=== PATIENT | female | born 1970 | race Caucasian/White ===

== ENCOUNTER → 2020-08-18 00:24 | Outpatient (CLI) | payer BC, SELFPAY ==
[2020-08-18 19:26] LABS: SARS-CoV-2 RNA PCR Negative
== END ==
PROVIDERS: PCP Internal Medicine; Visit Provider Internal Medicine Gastroenterology
DX: Z01.812 Encounter for preprocedural laboratory examination (principal); Z20.822 Contact with and (suspected) exposure to COVID-19
CPT/HCPCS: C9803; U0003; U0005

== ENCOUNTER 2020-08-22 01:31 | Day surgery (SDC) | payer BC, SELFPAY ==
[2020-08-08 13:33] VITALS: BMI 19.5
[2020-08-22 07:23] VITALS: BP 130/81; PULSE 82; RESP 16; TEMP 36.7; O2SAT 100; BMI 23.4
[2020-08-22] MEDS: LACTATED RINGERS 1,000 ML 150 ML IV CONT (07:38)
--- NOTE | 2020-08-22 08:11 | WPDANESEPPF ---
Anes - Initial Pre Proc Eval Procedure: Operation Date: 08/22/20 08:30 Proposed Procedures p Screening Colonoscopy - Valente Farnsworth MD Date/Time: 08/22/20 08:11 Surgeon: Valente Farnsworth MD Pre Op Diagnosis: family hx of colon Ca, Neoplasm screening Patient Data Age: 50 Gender: F Height: 1.68 m Weight: 65.8 kg Last Vital Signs Temp 98.1 F 08/22/20 07:23 Pulse 82 08/22/20 07:23 Resp 16 08/22/20 07:23 BP 130/81 08/22/20 07:23 Pulse Ox 100 08/22/20 07:23 Allergies Allergy/AdvReac Type Severity Reaction Status Date / Time No Known Allergies Allergy Verified 08/22/20 07:22 Home Medications Medication Instructions Recorded Confirmed Type buspirone 10 mg tablet 10 mg PO BID 12/30/18 08/22/20 History lisdexamfetamine 50 mg capsule 50 mg PO DAILY 12/30/18 08/22/20 History lorazepam 0.5 mg tablet 0.5 mg PO TID PRN 12/30/18 08/22/20 History vilazodone 40 mg tablet 40 mg PO DAILY 12/30/18 08/22/20 History amlodipine 5 mg tablet 5 mg PO DAILY #90 tablet 02/01/20 08/22/20 Rx levothyroxine 100 mcg tablet 100 mcg PO DAILY #90 tablet 02/01/20 08/22/20 Rx valacyclovir 500 mg tablet See Rx Instructions .ROUTE 05/15/20 08/22/20 Rx .COMPLEX #90 tablet clonidine HCl 0.1 mg PO DAILY 08/08/20 08/22/20 History Patient hx anesthesia problems: none Family hx anesthesia problems: none PMFSH Past Medical History Medical History (Updated 05/15/20 @ 15:00 by Brian aGines APRN) ADD (attention deficit disorder) Adult hypothyroidism Anxiety and depression Family history of breast cancer in mother Surgical History Surgical History (Updated 05/15/20 @ 15:08 by Brian Gaines APRN) History of tonsillectomy History of tubal ligation Family History Family History Father Hypertension Family history of diabetes mellitus in first degree relative Mother Hypertension Family history of malignant neoplasm of breast in first degree relative Other Carcinoma of colon Social History Social History Smoking status: Never smoker Alcohol intake: current Drinks per week: 6 Substance use: never Substance use type: does not use Living arrangements: alone Spiritual care concerns: No Anes - Eval Final PreProcedure Day of Procedure 08/22/20 08:11 Patient weight: normal Heart: regular rate and rhythm Lungs: clear to auscultation Airway: Mallampati scale class II Neurological: alert and oriented Last oral intake: >/= 8 hours ASA classification: II Emergent: no Anesthetic plan: proceed Anesthesia type and monitoring: general GIVS and standard monitoring Informed Consent: The patient's anesthetic plan and its attendant risks and benefits were discussed with the patient/family/POA. Questions were solicited and answers provided to the satisfaction of the patient/family/POA.
--- NOTE | 2020-08-22 08:26 | PM.HPGS ---
History of Present Illness History of Present Illness Consent: Risks, benefits, and alternatives have been discussed and questions answered. Patient agrees to proceed with procedure. Chief complaint: family hx of colon Ca, Neoplasm screening Narrative: Nany Noriega is a 50 year old female referred for colon cancer screening Review of Systems Review of Systems: All systems reviewed & are unremarkable except as noted in HPI and below PMFSH Past Medical History Medical History ADD (attention deficit disorder) Adult hypothyroidism Anxiety and depression Family history of breast cancer in mother Surgical History Surgical History History of tonsillectomy History of tubal ligation Family History Family History Father Hypertension Family history of diabetes mellitus in first degree relative Mother Hypertension Family history of malignant neoplasm of breast in first degree relative Other Carcinoma of colon Social History Social History Smoking status: Never smoker Alcohol intake: current Drinks per week: 6 Substance use: never Substance use type: does not use Living arrangements: alone Spiritual care concerns: No Meds Home Medications and Allergies Home Medications Medication Instructions Recorded Confirmed Type buspirone 10 mg tablet 10 mg PO BID 12/30/18 08/22/20 History lisdexamfetamine 50 mg capsule 50 mg PO DAILY 12/30/18 08/22/20 History lorazepam 0.5 mg tablet 0.5 mg PO TID PRN 12/30/18 08/22/20 History vilazodone 40 mg tablet 40 mg PO DAILY 12/30/18 08/22/20 History amlodipine 5 mg tablet 5 mg PO DAILY #90 tablet 02/01/20 08/22/20 Rx levothyroxine 100 mcg tablet 100 mcg PO DAILY #90 tablet 02/01/20 08/22/20 Rx valacyclovir 500 mg tablet See Rx Instructions .ROUTE 05/15/20 08/22/20 Rx .COMPLEX #90 tablet clonidine HCl 0.1 mg PO DAILY 08/08/20 08/22/20 History Allergies Allergy/AdvReac Type Severity Reaction Status Date / Time No Known Allergies Allergy Verified 08/22/20 07:22 Vital Signs Vital Signs - 24 hr 08/22/ 07:23 Temperature 36.7 C Pulse Rate 82 Respiratory Rate 16 Blood Pressure 130/81 Pulse Oximetry 100 Exam Resp: Auscultation: clear to auscultation bilaterally Cardio: Rate: regular rate Rhythm: regular rhythm GI: GI Palp: Yes Soft to palpation and No Tenderness to palpation present (GI) Assessment and Plan Assessment and plan (1) Colon cancer screening: Code(s): Z12.11 - Encounter for screening for malignant neoplasm of colon Status: Acute Assessment and Plan: Colonoscopy with possible biopsy or polypectomy or cautery or injection of substances.
[2020-08-22 08:57] VITALS: BP 107/55; PULSE 78; RESP 22; O2SAT 100
[2020-08-22 09:07] VITALS: BP 119/64; PULSE 70; RESP 18; O2SAT 100
[2020-08-22 09:17] VITALS: BP 134/78; PULSE 60; RESP 20; O2SAT 100
== END 2020-08-22 09:29 | disposition home or self-care (01) ==
PROVIDERS: PCP Internal Medicine; Visit Provider Internal Medicine Gastroenterology
PROC: 0DJD8ZZ Inspection of Lower Intestinal Tract, Via Natural or Artificial Opening Endoscopic (ICD-10-PCS; CPT 45378; principal; 2020-08-22 08:30)
DX: Z12.11 Encounter for screening for malignant neoplasm of colon (principal); Z80.0 Family history of malignant neoplasm of digestive organs; E03.9 Hypothyroidism, unspecified; F41.8 Other specified anxiety disorders; F98.8 Other specified behavioral and emotional disorders with onset usually occurring in childhood and adolescence; Z85.3 Personal history of malignant neoplasm of breast
CPT/HCPCS: 45378; J2704; J7120

== ENCOUNTER → 2021-01-16 02:27 | Outpatient (CLI) | payer BC, SELFPAY ==
[2021-01-16 10:57] LABS: Influenza Control Positive
[2021-01-16 18:48] LABS: SARS-CoV-2 RNA PCR Negative
== END ==
PROVIDERS: PCP Internal Medicine; Visit Provider Internal Medicine
DX: R68.89 Other general symptoms and signs (principal); Z20.822 Contact with and (suspected) exposure to COVID-19
CPT/HCPCS: 87804; C9803; U0003; U0005

== ENCOUNTER 2021-09-29 11:51 | Emergency (ER) | payer BC, SELFPAY ==
--- NOTE | ~2021-09-29 | XR_ITS ---
EXAMINATION: XR chest 2V DATE: 09/29/2021 14:02 INDICATION: Productive cough, nausea and vomiting. COVID positive. TECHNIQUE: PA and lateral views of the chest were obtained. COMPARISON: None FINDINGS: Mild streaky atelectasis at the left lung base with tenting of the anterior left hemidiaphragm. No ot her airspace opacities, pulmonary edema, pleural effusion or pneumothorax. The cardiomediastinal silh ouette is normal. No thoracic spondylosis. IMPRESSION: 1. Mild left basilar atelectasis. No other acute cardiopulmonary disease. Reviewed, dictated and finalized at location A.
[2021-09-29 11:54] VITALS: BP 140/80; PULSE 94; RESP 14; TEMP 36.2; O2SAT 100
--- NOTE | 2021-09-29 15:05 | ED.URI ---
HPI - URI/Sore Throat General Chief Complaint: Upper Respiratory Infection Stated Complaint: covid positive, productive cough Time Seen by Provider: 09/29/21 15:04 Source: patient Mode of arrival: ambulatory Limitations: no limitations History of Present Illness HPI Narrative: Patient is a 51 y/o female who presents to the ED with multiple complaints. Patient reports she was diagnosed with COVID-19 on 09/18. She states she has felt persistently ill since then. She complains of diffuse myalgias, cough, congestion, headache, sore throat, anorexia, diarrhea. Today, she reported having nausea and vomiting after attempting to eat cereal. She called her family and was referred to the ED for further evaluation. Patient denies any blood in stool or emesis. Denies fever, difficulty breathing, chest pain, abdominal pain. She is not vaccinated for COVID. Has been taking Theraflu for symptoms. No pain medication today. Related Data Home Medications Medication Instructions Recorded Confirmed buspirone 10 mg tablet 10 mg PO BID 12/30/18 11/22/20 lisdexamfetamine 50 mg capsule 50 mg PO DAILY 12/30/18 11/22/20 (Vyvanse) lorazepam 0.5 mg tablet 0.5 mg PO TID PRN Anxiety 12/30/18 11/22/20 vilazodone 40 mg tablet (Viibryd) 40 mg PO DAILY 12/30/18 11/22/20 clonidine HCl 0.1 mg tablet 0.1 mg PO DAILY 08/08/20 11/22/20 Allergies Allergy/AdvReac Type Severity Reaction Status Date / Time No Known Allergies Allergy Verified 11/22/20 11:45 Review of Systems Review of Systems: CONSTITUTIONAL: Reports anorexia. Denies fever, chills, or sweats. ENT: Reports congestion. Denies sore throat. CARDIOVASCULAR: Denies chest pain. RESPIRATORY: Reports cough. Denies dyspnea. GASTROINTESTINAL: Reports N/V/D. Denies abdominal pain, rectal bleeding, hematemesis. MUSCULOSKELETAL: Reports myalgia. NEUROLOGIC: Reports headache. Denies focal weakness. All systems reviewed & are unremarkable except as noted in HPI and below PMFSH Past Medical History Medical History ADD (attention deficit disorder) Adult hypothyroidism Anxiety and depression Family history of breast cancer in mother Surgical History Surgical History History of tonsillectomy History of tubal ligation Family History Family History Father Hypertension Family history of diabetes mellitus in first degree relative Mother Hypertension Family history of malignant neoplasm of breast in first degree relative Other Carcinoma of colon Social History Social History Smoking status: Never smoker Second hand tobacco smoke exposure: Yes Alcohol intake: current Drinks per week: 8 Alcohol use details: mixed drinks Substance use: never Substance use type: does not use Spiritual care concerns: No Exam Narrative: GENERAL: Well appearing, well-nourished, non-toxic, in no acute distress. HEAD: Normocephalic, atraumatic. THROAT: Pharynx clear, no exudate. MMs moist. NECK: Supple. No adenopathy, no masses. RESPIRATORY: Airway patent, respirations nonlabored. Clear to auscultation bilaterally, no rales, rhonchi, wheezing. No respiratory distress. CARDIOVASCULAR: Regular rate and rhythm without murmurs, rubs, or gallops. Peripheral pulses 2+ and equal bilaterally. ABDOMINAL: Soft, nontender, nondistended, no hepatosplenomegaly. Normoactive BS. MUSCULOSKELETAL: Moves all extremities. Strength/ROM intact without gross deformities. No edema. SKIN: Warm, dry, normal color. No rashes. NEURO: A&O X3. Speech clear. Cranial nerves II-XII grossly intact. Steady gait. No ataxic movements. PSYCHIATRIC: Appropriate mood and affect. Normal interaction. Course Vital Signs Vital signs: Vital Signs Temperature 97.2 F L 09/29/21 11:54 Pulse Rate 94 09/29/21 11:54
[2021-09-29 16:10] LABS: Basophils Percent Auto 0.5 % (0.2-1.2); Eosinophils Percent Auto 0.2 % (0-4.4); Hemoglobin 13.4 g/dL (12.0-15.0); Immature Granulocyte Absolute 0.01 K/mm3 (0.00-0.031); Immature Granulocyte Percent A 0.2 % (0-0.5); Lymphocytes Percent Auto 34.5 % (18.3-44.2); Mean Corpuscular HGB Conc 34.4 g/dl (32-36); Mean Corpuscular Hemoglobin 31.8 pg (26-34); Mean Corpuscular Volume 92.4 fl (80-100); Mean Platelet Volume 9.2 fl (7.4-10.4); Monocytes Absolute Auto 0.4 K/mm3 (0.1-0.6); Monocytes Percent Auto 6.5 % (2.6-8.5); Neutrophils Absolute Auto 3.9 K/mm3 (1.3-6.7); Neutrophils Percent Auto 58.1 % (45.5-73.1); Platelet Count Result 199 k/mm3 (150-375); Red Blood Count 4.22 M/mm3 (4.2-5.4); Red Cell Distribution Width 11.9 % (11.5-14.5); White Blood Count 6.7 K/mm3 (4.5-10.0)
[2021-09-29 16:24] LABS: Alanine Aminotransferase 30 U/L (6-35); Albumin Level 4.5 g/dL (3.5-5.1); Alkaline Phosphatase 56 U/L (38-126); Anion Gap 8 mmol/L (8-16); Aspartate Amino Transferase 32 U/L (14-36); Bilirubin,Total 0.5 mg/dL (0.2-1.3); Blood Urea Nitrogen 17 mg/dL (7-17); Calcium 8.8 mg/dL (8.4-10.2); Carbon Dioxide 28 mmol/L (22-30); Chloride 102 mmol/L (98-107); Estimated CRCL calculation 68 ml/min; Estimated Glomerular Filt Rate > 60; Glucose 118 mg/dL (65-110); Potassium 4.1 mmol/L (3.4-5.0); Sodium 138 mmol/L (137-145)
[2021-09-29] MEDS: KETOROLAC 30 MG/ML VIAL (*BKC) IV PUSH (16:31)
[2021-09-29] MEDS: ONDANSETRON INJ 4 MG/2 ML VIAL IV PUSH (16:32)
[2021-09-29] MEDS: SODIUM CHLORIDE 0.9% IV 1,000 ML 999 ML IV CONT (16:34)
== END 2021-09-29 18:06 | disposition home or self-care (01) ==
PROVIDERS: Physician Assistant; Emergency Provider Emergency Medicine; PCP Internal Medicine
DX: U07.1 COVID-19 (principal); E03.9 Hypothyroidism, unspecified; F98.8 Other specified behavioral and emotional disorders with onset usually occurring in childhood and adolescence; F41.9 Anxiety disorder, unspecified; F32.A Depression, unspecified; Z28.310 Unvaccinated for COVID-19
CPT/HCPCS: 36415; 71046; 80053; 85025; 96365; 96375; 99284; J0131; J1885; J2405; J7030

== ENCOUNTER 2024-01-12 10:12 | Outpatient (CLI) | payer BC, SELFPAY ==
[2024-01-12 19:19] LABS: Alanine Aminotransferase 27 U/L (6-35); Albumin Level 4.9 g/dL (3.5-5.1); Alkaline Phosphatase 64 U/L (38-126); Anion Gap 7 mmol/L (4-12); Aspartate Amino Transferase 42 U/L (14-36); Bilirubin,Total 0.8 mg/dL (0.2-1.3); Blood Urea Nitrogen 14 mg/dL (7-17); Calcium 9.7 mg/dL (8.4-10.2); Carbon Dioxide 31 mmol/L (22-30); Chloride 99 mmol/L (98-107); Cholesterol 318 mg/dL (0-200); Estimated Glomerular Filt Rate 58; Glucose 98 mg/dL (65-110); HDL Direct 88 mg/dL; Sodium 137 mmol/L (137-145); Triglycerides 123 mg/dL (<150)
[2024-01-12 19:31] LABS: LDL Cholesterol Direct 173 mg/dL
[2024-01-12 19:42] LABS: Hematocrit 45.1 % (37.0-47.0); Hemoglobin 14.5 g/dL (12.0-15.0); Mean Corpuscular HGB Conc 32.2 g/dl (32-36); Mean Corpuscular Hemoglobin 31.9 pg (26-34); Mean Corpuscular Volume 99.1 fl (80-100); Mean Platelet Volume 10.2 fl (7.4-10.4); Platelet Count Result 285 k/mm3 (150-375); Red Blood Count 4.55 M/mm3 (4.2-5.4); Red Cell Distribution Width 12.9 % (11.5-14.5); White Blood Count 7.7 K/mm3 (4.5-10.0)
[2024-01-12 20:23] LABS: Free T4 Free Thyroxine 0.64 ng/mL (0.78-2.19)
== END 2024-01-12 10:13 | disposition home or self-care (01) ==
LOC: ANHBWCLAB 10:13
PROVIDERS: PCP Nurse Practitioner Adult Health; Visit Provider Nurse Practitioner Adult Health
DX: Z13.21 Encounter for screening for nutritional disorder (principal); Z13.29 Encounter for screening for other suspected endocrine disorder; Z13.220 Encounter for screening for lipoid disorders; Z13.228 Encounter for screening for other metabolic disorders; Z13.9 Encounter for screening, unspecified
CPT/HCPCS: 36415; 80053; 80061; 82607; 84439; 84443; 85027

== ENCOUNTER 2024-02-29 15:42 | Outpatient (CLI) | payer BC, SELFPAY ==
[2024-02-29 21:36] LABS: Cholesterol 198 mg/dL (0-200); HDL Direct 103 mg/dL; Triglycerides 83 mg/dL (<150)
[2024-02-29 21:45] LABS: LDL Cholesterol Direct 58 mg/dL
== END 2024-02-29 15:43 | disposition home or self-care (01) ==
LOC: ANHBWCLAB 15:43
PROVIDERS: PCP Nurse Practitioner Adult Health; Visit Provider Nurse Practitioner Adult Health
DX: E78.5 Hyperlipidemia, unspecified (principal); E03.9 Hypothyroidism, unspecified
CPT/HCPCS: 36415; 80061; 84443

== ENCOUNTER 2024-04-11 11:36 | Outpatient (CLI) | payer BC, SELFPAY ==
--- OUTSIDE RECORDS SUMMARY | 2024-04-11 12:20 | XMS_ITS | Encounter Summary ---
Author Organization [facility] Address [address] [place] [address] Care Team Providers Care Occupancy Specialist Name Role Phone Jhony Vogt DO Primary Care Provider [phone] Encounter Details Date Type Department Care Team ([facility] Contact Info) Description 05/11/2000 Outpatient Historical [facility] Internal Medicine [facility] [address] [address] Obed Rodriguez MD [facility] [place] [address] Social History Tobacco Use Types Packs/Day Years Used Date Smoking Tobacco: Never Assessed Comments Unknown Sex and Gender Information Value Date Recorded Sex Assigned at Not on file Legal Sex Female 2:49 AM SECOND RIGGER Gender Identity Not on file Sexual Orientation Not on file documented as of this encounter Plan of Treatment Upcoming Encounters Date Type Department Care Team ([facility] Contact Info) Description 04/14/2024 1:00 PM SECOND RIGGER Office Visit [facility] [employer] [facility] [address] [address] [place] [address] Nayan José MD [address] [place] [address] documented as of this encounter Visit Diagnoses Not on filedocumented in this encounter Care Teams Occupancy Specialist Relationship Specialty Start Date End Date Jhony Vogt DO [address] [facility] [address] [facility] [address] [place] [id number] PCP - General Internal Medicine 02/21/20 documented as of this encounter
--- OUTSIDE RECORDS SUMMARY | 2024-04-11 12:20 | XMS_ITS | Clinical Summary ---
Author Organization [facility] Address [address] [place] [address] Care Team Providers Care Imaging Science Professor Name Role Phone Jhony Vogt DO Primary Care Provider [phone] Allergies No known active allergies Medications busPIRone (BUSPAR) 15 mg Tablet TK 1 T PO BID 0 Active cloNIDine HCL (CATAPRES) 0.1 mg tablet TK 1 T PO BID 0 Active Vyvanse 70 mg capsule Take 50 mg by mouth daily in the morning. 0 Active ARIPiprazole (ABILIFY) 5 mg tablet Take 5 mg by mouth daily. 2 Active LORazepam (ATIVAN) 1 mg tablet Take 1 mg by mouth 2 times daily. 2 Active Auvelity 45-105 mg tablet, IR & ER, biphasic Take 1 Tablet by mouth 2 times daily. 3 Active viloxazine (Qelbree) 200 mg Capsule, Sust. Release 24HR Take by mouth. Active QUEtiapine (SEROquel) 100 mg tablet Take 100 mg by mouth 2 times daily. Active levothyroxine 25 mcg tablet Oral for 90 Days Active cyclobenzaprine (FLEXERIL) 5 mg Tablet Take 1 tablet 3 times a day by oral route for 5 days. 4 Active escitalopram oxalate (LEXAPRO) 20 mg tablet Take 1 Tablet by mouth daily. Active fluticasone propionate (FLONASE) 50 mcg/spray [place], Suspension nasal inhaler SHAKE LIQUID AND USE 2 SPRAYS IN EACH NOSTRIL EVERY DAY Active lumateperone (Caplyta) 10.5 mg Capsule 1 Capsule. 4 Active rosuvastatin (CRESTOR) 5 mg tablet TAKE 1 TABLET BY MOUTH EVERY DAY AT BEDTIME Oral for 90 Days Active valACYclovir (VALTREX) 500 mg tablet TAKE 1 TABLET(500 MG) BY MOUTH DAILY 90 Tablet 1 4 Active amLODIPine (Norvasc) 5 mg tablet Take 1 Tablet (5 mg) by mouth daily. 90 Tablet 2 5 Active amLODIPine (Norvasc) 5 mg tablet Take 1 Tablet (5 mg) by mouth daily. 90 Tablet 2 4 03/28/19 25 Discontinu ed(Reorder ) Active Problems Problem Noted Date Diagnosed Date Essential hypertension, benign 10/28/2005 Other and unspecified hyperlipidemia 08/07/2005 Elevated blood pressure read ing without diagnosis of hypertension 08/07/2005 Depressive disorder, not elsewhere classified Allergic rhinitis, cause unspecified 04/04/2004 Attention deficit disorder without mention of hy peractivity 04/04/2004 Encounters Date Type Department Care Team Description 04/05/2024 Telephone [facility] Clinical Support [address] [place] [address] Maxwell Sheppard, RN Results 04/05/2024 Orders Only [facility] LIQUEFIED NATURAL GAS PLANT OPERATOR [facility] [address] [address] [place] [address] Nayan José MD 04/01/2024 Abstract [facility] LIQUEFIED NATURAL GAS PLANT OPERATOR [facility] [address] [address] [place] [address] Nayan José MD 03/31/2024 11:00 AM BACTERIOLOGY RESEARCH ASSISTANT Procedure visit [facility] LIQUEFIED NATURAL GAS PLANT OPERATOR [facility] [address] [facility] [address] [place] [address] Nayan José MD LGSIL on Pap smear of cervix (Primary Dx) 03/31/2024 Telephone [facility] LIQUEFIED NATURAL GAS PLANT OPERATOR [facility] [address] [address] [place] [address] Nayan José MD Surgery 03/28/2024 Refill [facility] LIQUEFIED NATURAL GAS PLANT OPERATOR [facility] [place] [address] [facility] [address] [place] [address] Nyaan José MD 03/23/2024 External Device Data [facility] ABSTRACTION Provider, Abstract 03/15/2024 External Device Data [facility] ABSTRACTION Provider, Abstract 02/23/2024 Refill [facility] LIQUEFIED NATURAL GAS PLANT OPERATOR [facility] [address] [facility] [address] [place] [address] Nayan José MD 02/12/2024 [facility] Clinical Support [address] [place] [address] Nayan José MD 02/12/2024 Telephone [facility] Clinical Support [address] [place] [address] Osvaldo Davis, RN Results 02/02/2024 11:20 AM BACTERIOLOGY RESEARCH ASSISTANT Office Visit [facility] LIQUEFIED NATURAL GAS PLANT OPERATOR [facility] [address] [facility] [address] [place] [address] Nayan José MD Encounter for well woman exam with routine gynecological exam (Primary Dx); Screening for malignant neoplasm of cervix; Breast cancer screening by mammogram 01/26/2024 Telephone [facility] Clinical Support [address] [place] [address] Jenifer Jean, RN Results from Last 3 Months Immunizations Immunization Administration Dates Next Due (TDVAX)(7 YRS UP) TETANUS AN D DIPHTHERIA TOXOIDS, ADSORBED (2 LF OF TETANUS TOXOID AND 2 LF OF DIPHTHERIA TOXOID), 0.5ML (PF), IM 09/20/2001 Skin Test TB 09/22/2001 Family History Medical History Relation Name Comments Cancer - Other Maternal Grandmother Evette Velasco Colon Cancer Colon Cancer Maternal Grandmother Evette Velasco Breast Cancer Mother Mariana Campos Colon Cancer Other great grandmoth er Relation Name Status Comments Maternal Grandmother Evette Velasco Alive Mother Mariana Campos Alive Other Social History Tobacco Use Types Packs/Day Years Used Date Smoking Tobacco: Never Smokeless Tobacco: Never Tobacco Cessation:Counseling Given: Not Answered Alcohol Use Standard Drinks/Week Comments Yes 0 (1 standard drink = 0.6 oz pur e alcohol) Feeling Safe Answer Date Recorded Are you in a relationship wi th someone who hurts you emotionally and/or physically? No 12/09/2023 Comments No Sex and Gender Information Value Date Recorded Sex Assigned at Not on file Legal Sex Female 2:49 AM BACTERIOLOGY RESEARCH ASSISTANT Gender Identity Not on file Sexual Orientation Not on file Last Filed Vital Signs Vital Sign Reading Time Taken Comments Blood Pressure 136/72 02/02/2024 11:22 AM BACTERIOLOGY RESEARCH ASSISTANT Pulse 82 12/09/2023 10:40 AM CDT Temperature 36.3 C (97.3 F) 12/09/2023 10:22 AM CDT Respiratory Rate 18 12/09/2023 10:40 AM CDT Oxygen Saturation 100% 12/09/2023 10:40 AM CDT Inhaled Oxygen Concentration - - Weight 64.2 kg (141 lb 9.6 oz) 03/31/2024 11:03 AM BACTERIOLOGY RESEARCH ASSISTANT Height 167.6 cm (5' 6 ) 02/02/2024 11:22 AM BACTERIOLOGY RESEARCH ASSISTANT Body Mass Index 22.85 02/02/2024 11:22 AM BACTERIOLOGY RESEARCH ASSISTANT Plan of Treatment Upcoming Encounters Date Type Department Care Team (Late st Contact Info) Description 04/14/2024 1:00 PM BACTERIOLOGY RESEARCH ASSISTANT Office Visit [facility] LIQUEFIED NATURAL GAS PLANT OPERATOR Medical [place] [address] [address] [address] [place] [address] Nayan José MD [facility] [address] [place] [address] Health Maintenance Due Date Last Done Comments HEPATITIS B VACCINES (1 of 3 - 19+ 3-dose series) 1989 DTAP/TDAP/TD VACCINES (1 - Tdap) 09/21/2001 09/21/19 02 FIT-DNA Q 3 years 08/19/2015 FIT/FOBT Q 1 year 08/19/2015 Flex Sig/CT Colonography Q 5 years 08/19/2015 ZOSTER VACCINE (1 of 2) 2020 INFLUENZA VACCINE (#1) 2023 11/15/2019, 2015 Preventative Visit- Commercial 03/02/2024 1 04/04/2023, 01/19/2023, 01/15/2022, Additional history exists BREAST CANCER SCREENING 01/13/2025 01/14/20, 01/27/2023, 12/16/2022, Additional history exists COLORECTAL SCREENING 12/08/2026 12/09/2023, 12/09/19 Colorectal Cancer Screening 12/08/2026 CERVICAL CANCER SCREENING 02/01/20272023, 01/19/2023, 01/15/2022, Additional history exists Medical Devices Implanted Type Area Automotive Refinisher Device Identifier Shelf Expiration Date Model / Serial / Lot Clip Endo Resolution 360 235cm [id number] - [id number] Implanted:Qty: 1 on 12/09/2023 by Melissa Barajas MD at [facility] Clip N/A: Perianal [employer] [id number] 07/16/2026 [id number] / / [id number] Description:colon Procedures Procedure Name Priority Date/Time Associated Diagnosis Comments PATHOLOGY Routine 04/01/2024 9:27 AM BACTERIOLOGY RESEARCH ASSISTANT POC , URINE Routine 03/31/2024 11:19 AM BACTERIOLOGY RESEARCH ASSISTANT LGSIL on Pap smear of cervix CERV/VAG CYTO AGE BASED SCREEN PAP Routine 02/02/2024 11:48 AM BACTERIOLOGY RESEARCH ASSISTANT Screening for malignant neoplasm of cervix COLONOSCOPY REPORT 12/09/2023 10 :33 AM CDT MAMMO DIAG UNI LEFT 3D MARY ELLEN W OR WO CAD Routine 01/27/2023 11:04 AM BACTERIOLOGY RESEARCH ASSISTANT Abnormal mammogram of left breast Breast cancer screening by mammogram from Last 3 Months or Most Recently Relevant to Health Maintenance Results * PATHOLOGY (04/01/2024 9:27 AM BACTERIOLOGY RESEARCH ASSISTANT) Tissue us Nayan José MD PATHOLOGY/CYTOLOGY ORDERABLE S Edited Result - Final Performing Organization Address [facility]/ZIP Co de Phone Number [facility] ANUPAMA STAFFORDER [address] CLIA# [id number] [address] [address] * POC , URINE (03/31/2024 11:19 AM BACTERIOLOGY RESEARCH ASSISTANT) HCG QUAL URINE POC Negative Negative, Indeterminate [facility] OBGYN TOWER A [address] INTERNAL KIT QC POC Pass Pass [facility] TOWER A [address] KIT LOT NUMBER POC [phone] [facility] TOWER A [address] KIT EXP DATE POC 4.8 [facility] TOWER A [address] Urine 03/31/2024 11:1 9 AM BACTERIOLOGY RESEARCH ASSISTANT Nayan José MD POINT OF CARE TESTING Final Result Performing Organization Address [facility] Co de Phone Number [facility] ANUPAMA STAFFORDER A [address] CLIA# [id number] [address] [address] * (ABNORMAL) CERV/VAG CYTO AGE BASED SCREEN PAP (02/02/2024 11:48 AM BACTERIOLOGY RESEARCH ASSISTANT) COMMENT (PAP): [facility] Comment: This order for age-based cervical cancer and STI screening follows ACOG guidelines(PB 168, 140, FOI760). See individual assays for performing site location. CLINICAL INFORMATION [facility] Comment:Routine exam LAST MENSTRUAL PERIOD [facility] Comment:NONE GIVEN PREV PAP: [facility] Comment:NONE GIVEN PREV BX: [facility] Comment:NONE GIVEN SOURCE [facility] Comment:Endocervix ADEQUACY: [facility] Comment: Satisfactory for evaluation. Endocervical/transformation zone component present. GENERAL CATEGORIZATION: (A) [facility] Comment:Cytology Results: Ep ithelial Cell Abnormality PAP INTERP (A) [facility] Comment:Low Grade Squamous I ntraepithelial Lesion (LSIL) COMMENT (PAP TEST) [facility] [employer] [facility] Comment: This Pap test has been evaluated with computer assisted technology. Suggest clinical correlation and follow-up as clinically appropriate ELEVATOR INSPECTOR: Henny Tejeda Comment: MVB, CT(ASCP) CT Screening Location: [place] [address] [place] [address] PATHOLOGIST [employer] Te[facility]eda Comment: Rashi Lai M.D., Board Certified in Anatomic Pathology and Cytopathology. (electronic signature) EXPLANATORY NOTE [facility] [place] Comment: EXPLANATORY NOTE: The Pap is a screening test for cervical cancer. It is not a diagnostic test and is subject to false negative and false positive results. It is most reliable when a satisfactory sample, regularly obtained, is submitted with relevant clinical findings and history, and when the Pap result is evaluated along with historic and current clinical information. HPV E6/E7 Detected( A) Not Detected [employer] Comment: Methodology: Bindery Worker-Mediated Amplification This assay detects E6/E7 viral messenger RNA (mRNA) from 14 high-risk HPV types (16,18,31,33,35,39,45,51,52,56,58,59,66,68). Cervical sources are required for HPV testing. If a vaginal source from a patient who has had a total hysterectomy with removal of cervix was submitted, please contact the testing laboratory for alternative testing options. For additional information, please refer to http://education.HealthcareSource/faq/JSY413r2 (This link if provided for information/ educational purposes only.) Test Performed at: [facility] [address] [place] [address] Cyndi LOPES Genital SWAB OF ENDOCERVIX / Unknown 02/02/2024 11:48 AM BACTERIOLOGY RESEARCH ASSISTANT 02/03/2024 4:30 AM BACTERIOLOGY RESEARCH ASSISTANT us Nayan José MD PATHOLOGY/CYTOLOGY ORDERABLE S Final Result [facility] [phone] [facility] [address] [place] [address] * COLONOSCOPY REPORT (12/09/2023 10:33 AM CDT) Narrative Procedure Note Melissa Barajas MD - 12/09/2023 10:33 AM CDT [facility] Patient Name: Nany Noriega Procedure Date: 12/09/2023 Date of : 1970 Attending MD: Melissa Barajas MD, Procedure: Colonoscopy Providers: Melissa Barajas MD Referring MD: Nayan José MD Complications: No immediate complications. Procedure: Informed consent was obtained for the procedure, including moderate sedation after risks were discussed. Based on the pre-procedure assessment, including review of the patient's medical history, medications, allergies, and review of systems, the patient was deemed to be an appropriate candidate for sedation. A timeout was performed. Continuous ECG monitoring, pulse oximetry, blood pressure monitoring, and direct observation were performed. The Colonoscope was introduced through the anus and advanced to the cecum, identified by appendiceal orifice and ileocecal valve. The colonoscopy was performed without difficulty. The patient tolerated the procedure well. The quality of the bowel preparation was adequate to identify polyps. Some thicker/stuck on material noted in right colon/smaller of flat polyps may be difficult to see in some areas despite copious lavage and suctioning. Estimated Blood Loss: Estimated blood loss: none. Findings: An 11 mm polyp was found in the hepatic flexure. The polyp was flat and very subtle. The polyp was removed with a cold snare. Resection and retrieval were complete. To prevent bleeding post-intervention, one hemostatic clip was successfully placed. There was no bleeding at the end of the procedure. Non-bleeding internal hemorrhoids were found during retroflexion. The hemorrhoids were mild. The exam was otherwise without abnormality. Impression: - One 11 mm polyp at the hepatic flexure, removed with a cold snare. Resected and retrieved. Clip was placed. - Non-bleeding internal hemorrhoids. - The examination was otherwise normal. Recommendation: - Await pathology results. - Repeat colonoscopy in 3 years for surveillance. - Next time, DO NOT EAT ANY SOLID FOODS the day prior to your colonoscopy. Be sure to follow split prep instructions carefully as well --- complete 3/4 of prep before midnight and 1/4 after midnight - No NSAIDs for 7 days. Melissa Barajas MD 12/09/2023 10:23:43 AM This report has been signed electronically. Number of Addenda: [address]; [place] [address] Melissa Barajas MD GI PROCEDURE ORDERABLES Final Result from Last 3 Months or Most Recently Relevant to Health Maintenance Insurance FEDERAL Advance Directives For more information, please contact: [phone] * Full Code (Latest Code Status on File) Date Activated Date Inactivated Comments 12/09/2023 9:24 AM 12/09/2023 12:50 PM Care Teams Imaging Science Professor Relationship Specialty Start Date End Date Jhony Vogt DO [address] [facility] [address] [place] [address] PCP - General Internal Medicine 02/21/20
--- OUTSIDE RECORDS SUMMARY | 2024-04-11 12:20 | XMS_ITS | Encounter Summary ---
Author Organization [facility] Address [address] [place] [address] Care Team Providers Care Sweat Box Attendant Name Role Phone Jhony Vogt DO Primary Care Provider [phone] Encounter Details Date Type Department Care Team (Latest Contact Info) Description 06/29/2001 Outpatient Historical [facility] Obed Mccall MD [address] [place] [address] CHEST SWELLING/MASS/LUMP (Primary Dx) Social History Tobacco Use Types Packs/Day Years Used Date Smoking Tobacco: Never Assessed Comments Unknown Sex and Gender Information Value Date Recorded Sex Assigned at Not on file Legal Sex Female 2:49 AM CAREER DEVELOPMENT ENGINEER Gender Identity Not on file Sexual Orientation Not on file documented as of this encounter Plan of Treatment Upcoming Encounters Date Type Department Care Team (Late st Contact Info) Description 04/14/2024 1:00 PM CAREER DEVELOPMENT ENGINEER Office Visit [facility] DISABILITY ATTORNEY Medical [place] [address] [facility] [address] [place] [address] Nayan José MD [address] [facility] [address] [place] [address] documented as of this encounter Visit Diagnoses Diagnosis Swelling, mass, or lump in chest- Primary documented in this encounter Care Teams Sweat Box Attendant Relationship Specialty Start Date End Date Jhony Vogt DO [address] [facility] [address] [address] PCP - General Internal Medicine 02/21/20 documented as of this encounter
--- OUTSIDE RECORDS SUMMARY | 2024-04-11 12:20 | XMS_ITS | Encounter Summary ---
Author Organization [facility] Address [address] [place] [address] Care Team Providers Care Boilers And Pressure Vessels Inspector Name Role Phone Jhony Vogt DO Primary Care Provider [phone] Encounter Details Date Type Department Care Team ([facility] Contact Info) Description 12/16/2000 Outpatient Historical [facility] Internal Medicine [facility] [address] [facility] [address] [address] Obed Rodriguez MD [facility] [place] [address] Social History Tobacco Use Types Packs/Day Years Used Date Smoking Tobacco: Never Assessed Comments Unknown Sex and Gender Information Value Date Recorded Sex Assigned at Not on file Legal Sex Female 2:49 AM INSTRUCTIONAL CONSULTANT Gender Identity Not on file Sexual Orientation Not on file documented as of this encounter Plan of Treatment Upcoming Encounters Date Type Department Care Team ([facility] Contact Info) Description 04/14/2024 1:00 PM INSTRUCTIONAL CONSULTANT Office Visit [facility] INSTRUCTOR HAIRSPRING [facility] [address] [facility] [address] [place] [address] Nayan José MD [address] [facility] [address] [place] [address] documented as of this encounter Visit Diagnoses Not on filedocumented in this encounter Care Teams Boilers And Pressure Vessels Inspector Relationship Specialty Start Date End Date Jhony Vogt DO [facility] [facility] [address] [place] [address] PCP - General Internal Medicine 02/21/20 documented as of this encounter
--- OUTSIDE RECORDS SUMMARY | 2024-04-11 12:20 | XMS_ITS | Encounter Summary ---
Author Organization [facility] Address [address] [place] [address] Care Team Providers Care Research Interviewer Name Role Phone Jhony Vogt DO Primary Care Provider [phone] Encounter Details Date Type Department Care Team ([facility] Contact Info) Description 09/22/2001 Outpatient Historical [facility] Internal Medicine [facility] [address] [facility] [address] [address] Obed Rodriguez MD [facility] [place] [address] Social History Tobacco Use Types Packs/Day Years Used Date Smoking Tobacco: Never Assessed Comments Unknown Sex and Gender Information Value Date Recorded Sex Assigned at Not on file Legal Sex Female 2:49 AM ROVING TELLER Gender Identity Not on file Sexual Orientation Not on file documented as of this encounter Plan of Treatment Upcoming Encounters Date Type Department Care Team ([facility] Contact Info) Description 04/14/2024 1:00 PM ROVING TELLER Office Visit [facility] TRANSPORTATION AGENT [facility] [address] [facility] [address] [place] [address] Nayan José MD [address] [facility] [address] [place] [address] documented as of this encounter Visit Diagnoses Not on filedocumented in this encounter Care Teams Research Interviewer Relationship Specialty Start Date End Date Jhony Vogt DO [address] [facility] [address] [facility] [address] [place] [address] PCP - General Internal Medicine 02/21/20 documented as of this encounter
--- OUTSIDE RECORDS SUMMARY | 2024-04-11 12:20 | XMS_ITS | Encounter Summary ---
Author Organization [facility] Address [address] [place] [address] Care Team Providers Care Level Vial Inspector Name Role Phone Jhony Vogt DO Primary Care Provider [phone] Encounter Details Date Type Department Care Team ([facility] Contact Info) Description 06/09/2000 Outpatient Historical [facility] Internal Medicine [facility] [address] [facility] [address] [address] Obed Rodriguez MD [facility] [place] [address] Social History Tobacco Use Types Packs/Day Years Used Date Smoking Tobacco: Never Assessed Comments Unknown Sex and Gender Information Value Date Recorded Sex Assigned at Not on file Legal Sex Female 2:49 AM SUPERINTENDENT CUSTODIAN JANITOR Gender Identity Not on file Sexual Orientation Not on file documented as of this encounter Plan of Treatment Upcoming Encounters Date Type Department Care Team ([facility] Contact Info) Description 04/14/2024 1:00 PM SUPERINTENDENT CUSTODIAN JANITOR Office Visit [facility] PNEUMATIC PRESS HAND [facility] [address] [facility] [address] [place] [address] Nayan José MD [address] [facility] [address] [place] [address] documented as of this encounter Visit Diagnoses Not on filedocumented in this encounter Care Teams Level Vial Inspector Relationship Specialty Start Date End Date Jhony Vogt DO [address] [facility] [address] [facility] [address] [place] [address] PCP - General Internal Medicine 02/21/20 documented as of this encounter
--- OUTSIDE RECORDS SUMMARY | 2024-04-11 12:20 | XMS_ITS | Encounter Summary ---
Author Organization [facility] Address [address] [place] [address] Care Team Providers Care Chart Calculator Name Role Phone Jhony Vogt DO Primary Care Provider Encounter Details Date Type Department Care Team (Latest Contact Info) Description 04/07/2002 Outpatient Historical HIS PATIENT IN A BED Nayan José MD [address] [address] DECREASED MOVMT-ANTEPARTUM (Primary Dx) Social History Tobacco Use Types Packs/Day Years Used Date Smoking Tobacco: Never Assessed Comments Unknown Sex and Gender Information Value Date Recorded Sex Assigned at Not on file Legal Sex Female 2:49 AM REINFORCED CONCRETE INSPECTOR Gender Identity Not on file Sexual Orientation Not on file documented as of this encounter Plan of Treatment Upcoming Encounters Date Type Department Care Team (Late st Contact Info) Description 04/14/2024 1:00 PM REINFORCED CONCRETE INSPECTOR Office Visit [facility] DOBBY LOOM CHAIN PEGGER Medical [place] [address] [facility] [address] [place] [address] Nayan José MD [address] [place] [address] documented as of this encounter Visit Diagnoses Diagnosis Decreased movements, affecting management of mother, antepartum- Primary documented in this encounter Care Teams Chart Calculator Relationship Specialty Start Date End Date Jhony Vogt DO [address] [facility] [address] [facility] [address] [place] [address] PCP - General Internal Medicine 02/21/20 documented as of this encounter
--- OUTSIDE RECORDS SUMMARY | 2024-04-11 12:20 | XMS_ITS | Encounter Summary ---
Author Organization [facility] Address [address] [place] [address] Care Team Providers Care Community Development Director Name Role Phone Jhony Vogt DO Primary Care Provider [phone] Encounter Details Date Type Department Care Team (Latest Contact Info) Description 08/29/2002 Outpatient Historical HIS PATIENT IN A BED Nayan José MD [address] [address] PROLONGED PREG-ANTEPART,>42 WKS (Primary Dx) Social History Tobacco Use Types Packs/Day Years Used Date Smoking Tobacco: Never Assessed Comments Unknown Sex and Gender Information Value Date Recorded Sex Assigned at Not on file Legal Sex Female 2:49 AM VICE PRESIDENT & GENERAL MANAGER [employer] [place] Gender Identity Not on file Sexual Orientation Not on file documented as of this encounter Plan of Treatment Upcoming Encounters Date Type Department Care Team (Late st Contact Info) Description 04/14/2024 1:00 PM VICE PRESIDENT & GENERAL MANAGER [employer] [place] Office Visit [facility] DAIRY HELPER Medical [place] [address] [address] [place] [address] Nayan José MD [address] [place] [address] documented as of this encounter Visit Diagnoses Diagnosis Prolonged , antepartum condition or complication- Primary documented in this encounter Care Teams Community Development Director Relationship Specialty Start Date End Date Jhony Vogt DO [address] [facility] 162 [facility] [address] [place] [address] PCP - General Internal Medicine 02/21/20 documented as of this encounter
--- OUTSIDE RECORDS SUMMARY | 2024-04-11 12:20 | XMS_ITS | Encounter Summary ---
Author Organization [facility] Address [address] [place] [address] Care Team Providers Care Educational Interpreter Name Role Phone Jhony Vogt DO Primary Care Provider [phone] Encounter Details Date Type Department Care Team ([facility] Contact Info) Description 04/01/2000 Outpatient Historical [facility] Internal Medicine [facility] [address] [facility] [address] [address] Obed Rodriguez MD 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 [facility] [address] [place] [address] documented as of this encounter Visit Diagnoses Not on filedocumented in this encounter Care Teams Educational Interpreter Relationship Specialty Start Date End Date Jhony Vogt DO [address] [facility] 162 [facility] [address] [place] [id number] PCP - General Internal Medicine 02/21/20 documented as of this encounter
--- OUTSIDE RECORDS SUMMARY | 2024-04-11 12:20 | XMS_ITS ---
Author Organization [facility] [employer] Address [address] [place] [address] Care Team Providers Care Reclamation Supervisor Name Role Phone Daryl Sosa Unavailable [phone] Allergies No Known Allergies REASON FOR VISIT f/u adhd, anxiety Medications Medication SIG (Take, Route, Frequency, Duration) Notes Start Date End Date Status Caplyta 10.5 MG 1 capsule Orally once daily for 30 days 10/08/2023 Active LORazepam 1 MG 1 tablet Oral twice daily for 30 days As needed 10/23/2023 Active amLODIPine Besylate 5 MG Oral 07/09/2023 Active Lisdexamfetamine Dimesylate 70 MG 1 capsule in the morning Orally Once a day for 30 days Active QUEtiapine Fumarate 100 MG 1 tablet at bedtime Oral Once a day for 90 days As needed Active valACYclovir HCl 500 MG Oral 07/09/2023 Active LORazepam 1 MG 1 tablet Oral twice daily for 30 days As needed 02/01/2024 Active Auvelity 45-105 MG 1 tablet Oral twice a day for 30 days *Reorder from [employer] for eRx and Interaction Alerts* Active cloNIDine HCl 0.1 MG 1 tablet Oral twice daily for 90 days Active Levothyroxine Sodium 25 MCG Oral for 90 Days Active busPIRone HCl 15 MG 1 tablet Oral Twice a day for 90 days Active Rosuvastatin Calcium 5 MG TAKE 1 TABLET BY MOUTH EVERY DAY AT BEDTIME Oral for 90 Days Active Social History Tobacco Use: Social History Observation Description Date Details (start date - stop date) Never Smoker NA - NA Sex Assigned At : Social History Observation Description Sex Assigned At Female Tobacco Control (Standard) Question Answer Notes Tobacco use: Nonsmoker Vital Signs Blood pressure systolic 141 mm Hg 02/01/20 24 Blood pressure diastolic 94 mm Hg 024 Heart Rate 83 /min 02/01/2024 Height 66.00 in 02/01/2024 Weight 147.2 lbs 02/01/2024 BMI 23.76 kg/m2 02/01/2024 Height-cm 167.64 cm 02/01/2024 Weight-kg 66.77 kg 02/01/2024 Encounters Encounter Location Date Provider Diagnosis [facility] [address] [place] [address] 02/01/2024 Daryl Sosa Generalized anxiety disorder F41.1 ; Primary insomnia F51.01 ; Post-traumatic stress disorder, chronic F43.12 ; Attention-deficit hyperactivity disorder, predominantly inattentive type F90.0 ; Major depressive disorder, recurrent, moderate F33.1 ; Severe episode of recurrent major depressive disorder, without psychotic features F33.2 and Other specified hypothyroidism E03.8 Assessments Encounter Date Diagnosis (ICD Code) Assessment Notes Treatment Notes Treatment Clinical Notes Section Notes 02/01/2024 Generalized anxiety disorder (ICD-10 - F41.1) 1. Hypothyroidism: - Patient reports recent diagnosis of hypothyroidism with a TSH of 39.9. - Currently on levothyroxine 25 mcg daily. Plan: - Continue levothyroxine 25 mcg daily. - Follow up with primary care provider in 6 weeks for repeat blood work and dose adjustment as needed. 2. Insomnia: - Patient reports improved sleep, currently using quetiapine as needed. Plan: - Continue quetiapine as needed for sleep. - Encourage good sleep hygiene practices. 3. Anxiety: - Patient is on Buspar twice daily and clonidine twice daily. - Lorazepam twice daily as needed. Plan: - Continue current medications as prescribed. - Consider referral to therapy for additional support if needed. 4. ADHD: - Patient is on Vyvanse 70 mg daily, but currently taking 50 mg due to running out of the 70 mg dose. Plan: - Provide a new prescription for Vyvanse 70 mg daily. - Encourage patient to follow up if any concerns or side effects arise. 5. Depression: - Patient reports some improvement in mood. - Awaiting approval for Robbie JUNG. Plan: - Continue current medications as prescribed. - Follow up with Cassidy regarding Spravato PA status. - Schedule a follow-up appointment in one month to reassess mood and medication effectiveness. 6. Social stressors: - Patient reports feeling overwhelmed with organizing their house and recent loss of a pet. Plan: - Encourage patient to seek support from friends, family, or a therapist to help cope with stressors. - Provide resources for stress management and self-care. 02/01/2024 Primary insomnia (ICD-10 - F51.01) quetiapine 100mg prn 1. Hypothyroidism: - Patient reports recent diagnosis of hypothyroidism with a TSH of 39.9. - Currently on levothyroxine 25 mcg daily. Plan: - Continue levothyroxine 25 mcg daily. - Follow up with primary care provider in 6 weeks for repeat blood work and dose adjustment as needed. 2. Insomnia: - Patient reports improved sleep, currently using quetiapine as needed. Plan: - Continue quetiapine as needed for sleep. - Encourage good sleep hygiene practices. 3. Anxiety: - Patient is on Buspar twice daily and clonidine twice daily. - Lorazepam twice daily as needed. Plan: - Continue current medications as prescribed. - Consider referral to therapy for additional support if needed. 4. ADHD: - Patient is on Vyvanse 70 mg daily, but currently taking 50 mg due to running out of the 70 mg dose. Plan: - Provide a new prescription for Vyvanse 70 mg daily. - Encourage patient to follow up if any concerns or side effects arise. 5. Depression: - Patient reports some improvement in mood. - Awaiting approval for Spravato PA. Plan: - Continue current medications as prescribed. - Follow up with Cassidy regarding Spravato PA status. - Schedule a follow-up appointment in one month to reassess mood and medication effectiveness. 6. Social stressors: - Patient reports feeling overwhelmed with organizing their house and recent loss of a pet. Plan: - Encourage patient to seek support from friends, family, or a therapist to help cope with stressors. - Provide resources for stress management and self-care. 02/01/2024 Post-traumatic stress disorder, chronic (ICD-10 - F43.12) 1. Hypothyroidism: - Patient reports recent diagnosis of hypothyroidism with a TSH of 39.9. - Currently on levothyroxine 25 mcg daily. Plan: - Continue levothyroxine 25 mcg daily. - Follow up with primary care provider in 6 weeks for repeat blood work and dose adjustment as needed. 2. Insomnia: - Patient reports improved sleep, currently using quetiapine as needed. Plan: - Continue quetiapine as needed for sleep. - Encourage good sleep hygiene practices. 3. Anxiety: - Patient is on Buspar twice daily and clonidine twice daily. - Lorazepam twice daily as needed. Plan: - Continue current medications as prescribed. - Consider referral to therapy for additional support if needed. 4. ADHD: - Patient is on Vyvanse 70 mg daily, but currently taking 50 mg due to running out of the 70 mg dose. Plan: - Provide a new prescription for Vyvanse 70 mg daily. - Encourage patient to follow up if any concerns or side effects arise. 5. Depression: - Patient reports some improvement in mood. - Awaiting approval for Spravato PA. Plan: - Continue current medications as prescribed. - Follow up with Cassidy regarding Spravato PA status. - Schedule a follow-up appointment in one month to reassess mood and medication effectiveness. 6. Social stressors: - Patient reports feeling overwhelmed with organizing their house and recent loss of a pet. Plan: - Encourage patient to seek support from friends, family, or a therapist to help cope with stressors. - Provide resources for stress management and self-care. 02/01/2024 Attention-deficit hyperactivity disorder, predominantly inattentive type (ICD-10 - F90.0) 1. Hypothyroidism: - Patient reports recent diagnosis of hypothyroidism with a TSH of 39.9. - Currently on levothyroxine 25 mcg daily. Plan: - Continue levothyroxine 25 mcg daily. - Follow up with primary care provider in 6 weeks for repeat blood work and dose adjustment as needed. 2. Insomnia: - Patient reports improved sleep, currently using quetiapine as needed. Plan: - Continue quetiapine as needed for sleep. - Encourage good sleep hygiene practices. 3. Anxiety: - Patient is on Buspar twice daily and clonidine twice daily. - Lorazepam twice daily as needed. Plan: - Continue current medications as prescribed. - Consider referral to therapy for additional support if needed. 4. ADHD: - Patient is on Vyvanse 70 mg daily, but currently taking 50 mg due to running out of the 70 mg dose. Plan: - Provide a new prescription for Vyvanse 70 mg daily. - Encourage patient to follow up if any concerns or side effects arise. 5. Depression: - Patient reports some improvement in mood. - Awaiting approval for Spravato PA. Plan: - Continue current medications as prescribed. - Follow up with Cassidy regarding Spravato PA status. - Schedule a follow-up appointment in one month to reassess mood and medication effectiveness. 6. Social stressors: - Patient reports feeling overwhelmed with organizing their house and recent loss of a pet. Plan: - Encourage patient to seek support from friends, family, or a therapist to help cope with stressors. - Provide resources for stress management and self-care. 02/01/2024 Major depressive disorder, recurrent, moderate (ICD-10 - F33.1) auvelity 45mg-105mg bid 1. Hypothyroidism: - Patient reports recent diagnosis of hypothyroidism with a TSH of 39.9. - Currently on levothyroxine 25 mcg daily. Plan: - Continue levothyroxine 25 mcg daily. - Follow up with primary care provider in 6 weeks for repeat blood work and dose adjustment as needed. 2. Insomnia: - Patient reports improved sleep, currently using quetiapine as needed. Plan: - Continue quetiapine as needed for sleep. - Encourage good sleep hygiene practices. 3. Anxiety: - Patient is on Buspar twice daily and clonidine twice daily. - Lorazepam twice daily as needed. Plan: - Continue current medications as prescribed. - Consider referral to therapy for additional support if needed. 4. ADHD: - Patient is on Vyvanse 70 mg daily, but currently taking 50 mg due to running out of the 70 mg dose. Plan: - Provide a new prescription for Vyvanse 70 mg daily. - Encourage patient to follow up if any concerns or side effects arise. 5. Depression: - Patient reports some improvement in mood. - Awaiting approval for Spravato PA. Plan: - Continue current medications as prescribed. - Follow up with Cassidy regarding Spravato PA status. - Schedule a follow-up appointment in one month to reassess mood and medication effectiveness. 6. Social stressors: - Patient reports feeling overwhelmed with organizing their house and recent loss of a pet. Plan: - Encourage patient to seek support from friends, family, or a therapist to help cope with stressors. - Provide resources for stress management and self-care. 02/01/2024 Severe episode of recurrent major depressive disorder, without psychotic features (ICD-10 - F33.2) do Spravato PA 1. Hypothyroidism: - Patient reports recent diagnosis of hypothyroidism with a TSH of 39.9. - Currently on levothyroxine 25 mcg daily. Plan: - Continue levothyroxine 25 mcg daily. - Follow up with primary care provider in 6 weeks for repeat blood work and dose adjustment as needed. 2. Insomnia: - Patient reports improved sleep, currently using quetiapine as needed. Plan: - Continue quetiapine as needed for sleep. - Encourage good sleep hygiene practices. 3. Anxiety: - Patient is on Buspar twice daily and clonidine twice daily. - Lorazepam twice daily as needed. Plan: - Continue current medications as prescribed. - Consider referral to therapy for additional support if needed. 4. ADHD: - Patient is on Vyvanse 70 mg daily, but currently taking 50 mg due to running out of the 70 mg dose. Plan: - Provide a new prescription for Vyvanse 70 mg daily. - Encourage patient to follow up if any concerns or side effects arise. 5. Depression: - Patient reports some improvement in mood. - Awaiting approval for Robbie JUNG. Plan: - Continue current medications as prescribed. - Follow up with Cassidy regarding Robbie JUNG status. - Schedule a follow-up appointment in one month to reassess mood and medication effectiveness. 6. Social stressors: - Patient reports feeling overwhelmed with organizing their house and recent loss of a pet. Plan: - Encourage patient to seek support from friends, family, or a therapist to help cope with stressors. - Provide resources for stress management and self-care. 02/01/2024 Other specified hypothyroidism (ICD-10 - E03.8) 1. Hypothyroidism: - Patient reports recent diagnosis of hypothyroidism with a TSH of 39.9. - Currently on levothyroxine 25 mcg daily. Plan: - Continue levothyroxine 25 mcg daily. - Follow up with primary care provider in 6 weeks for repeat blood work and dose adjustment as needed. 2. Insomnia: - Patient reports improved sleep, currently using quetiapine as needed. Plan: - Continue quetiapine as needed for sleep. - Encourage good sleep hygiene practices. 3. Anxiety: - Patient is on Buspar twice daily and clonidine twice daily. - Lorazepam twice daily as needed. Plan: - Continue current medications as prescribed. - Consider referral to therapy for additional support if needed. 4. ADHD: - Patient is on Vyvanse 70 mg daily, but currently taking 50 mg due to running out of the 70 mg dose. Plan: - Provide a new prescription for Vyvanse 70 mg daily. - Encourage patient to follow up if any concerns or side effects arise. 5. Depression: - Patient reports some improvement in mood. - Awaiting approval for Robbie JUNG. Plan: - Continue current medications as prescribed. - Follow up with Cassidy regarding Robbie JUNG status. - Schedule a follow-up appointment in one month to reassess mood and medication effectiveness. 6. Social stressors: - Patient reports feeling overwhelmed with organizing their house and recent loss of a pet. Plan: - Encourage patient to seek support from friends, family, or a therapist to help cope with stressors. - Provide resources for stress management and self-care. Plan Of Treatment Medication Medication Name Sig Start Date Stop Date Notes Lisdexamfetamine Dimesylate 70 MG 1 capsule in the morning Orally Once a day for 30 days QUEtiapine Fumarate 100 MG 1 tablet at bedtime Oral Once a day for 90 days LORazepam 1 MG 1 tablet Oral twice daily for 30 days 02/01/2024 Auvelity 45-105 MG 1 tablet Oral twice a day for 30 days *Reorder from [employer] for eRx and Interaction Alerts* cloNIDine HCl 0.1 MG 1 tablet Oral twice daily for 90 days busPIRone HCl 15 MG 1 tablet Oral Twice a day for 90 days Treatment Notes Assessment Notes Primary insomnia quetiapine 100mg prn Major depressive disorder, recurrent, mo derate auvelity 45mg-105mg bid Severe episode of recurrent major depressive disorder, without psychotic features do Robbie JUNG Next Appt Details Follow Up: 4 Weeks, Reason: f/u depression, anxiety Provider Name:Daryl potts, 06/07/2024 10:00:00 AM, [address], [facility] [address], [place], [address], Progress Notes * SASHA DURÁN RDOB: 1 (53 yo F)Acc No.[id number]:02/01/2024 Patient: Denny SASHA BURGESS Provider: DON YOUNG :1970 A ge:53 Y S ex:Female Date:02/01/2024 Address:[address] [facility] [facility] Subjective: * Chief Complaints: * F /u adhd, anxiety * HPI: D epression screening: Chief complaint- Hypothyroidism, mood improvement. the note is transcribed using speech recognition software. It is a reflection of a visit with the patient. It might have some inaccuracy, including medication names and transcribing errors, though efforts have been made to correct them. The patient reports that her recent blood work showed significantly high thyroid levels, with a TSH of 39.9, and she has started treatment for hypothyroidism with levothyroxine 25 micrograms. She mentions that her mood has improved since starting the treatment, but it will take around 6 weeks to stabilize. The patient also reports that her sleep has been better and she has not needed to take quetiapine for sleep. The patient is currently taking Buspar twice a day for anxiety, clonidine twice a day, quetiapine as needed, lorazepam twice a day as needed, and Vyvanse 70 milligrams for ADHD. She mentions that she ran out of the 70 milligrams Vyvanse and has been taking 50 milligrams instead. Regarding her depression, the patient feels it has improved slightly but still feels overwhelmed with organizing her house. She has started talking to someone in the past month for support. The patient also reports that her mother's cat went missing, which has been upsetting for her. PHQ-9 L ittle interest or pleasure in doing things M ore than half the days, F eeling down, depressed, or hopeless S everal days, T rouble falling or staying asleep, or sleeping too much S everal days, F eeling tired or having little energy M ore than half the days, P oor appetite or overeating N ot at all, F eeling bad about yourself or that you are a failure, or have let yourself or your family down M ore than half the days, T rouble concentrating on things, such as reading the newspaper or watching television N early every day, M oving or speaking so slowly that other people could have noticed; or the opposite, being so fidgety or restless that you have been moving around a lot more than usual N ot at all, T houghts that you would be better off or of hurting yourself in some way N ot at all, T otal Score 1 1, I nterpretation M oderate Depression. I ntervention D epression Screening Findings P David gallegos ollow-Up for Depression M ental health treatment assessment, Patient follow-up to return when and if necessary, S uicide Risk Assessment Performed 1 04/03/2023 , A dditional Evaluation for Depression P sychiatric interview and evaluation, N jazmine of the standardized tool used for adult depression screening: [facility] ([facility]). H istory of Presenting Problem: Anxiety p ersistent. D epression t hinks would be better off if not here. * Medical History: * Surgical History: * Hospitalization/Major Diagno stic Procedure: * Social History: T obacco Use: T obacco Control (Standard) T obacco use: N onsmoker. M igrated Social History: M igrated Social History: Alcohol Intake: Occasional 05/29/2021,Tobacco Years: Never smoker 12/25/2017,Smoking Status: 0 04/13/2023. M iscellaneous: A dvance Care Planning A re you your own decision-maker Y es, D o you have Power of Administrative Office Assistant for Health or Medical? N o. * Medications: T akingvalACYclovir HCl 500 MG Tablet Oral amLODIPine Besylate 5 MG Tablet Oral Caplyta 10.5 MG Capsule 1 capsule Orally once daily LORazepam 1 MG Tablet 1 tablet Oral twice daily As neededbusPIRone HCl 15 MG Tablet 1 tablet Oral Twice a day cloNIDine HCl 0.1 MG Tablet 1 tablet Oral twice daily LORazepam 1 MG Tablet 1 tablet Oral twice daily As neededAuvelity 45-105 MG Tablet Extended Release 1 tablet Oral twice a day , Notes to Pharmacist: *Reorder from [employer] for eRx and Interaction Alerts*QUEtiapine Fumarate 100 MG Tablet 1 tablet at bedtime Oral Once a day Lisdexamfetamine Dimesylate 70 MG Capsule 1 capsule in the morning Orally Once a day Rosuvastatin Calcium 5 MG Tablet TAKE 1 TABLET BY MOUTH EVERY DAY AT BEDTIME Oral Levothyroxine Sodium 25 MCG Tablet Oral Taking valACYclovir HCl 500 MG Tablet Oral Taking amLODIPine Besylate 5 MG Tablet Oral Taking Caplyta 10.5 MG Capsule 1 capsule Orally once daily Taking LORazepam 1 MG Tablet 1 tablet Oral twice daily As neededTaking busPIRone HCl 15 MG Tablet 1 tablet Oral Twice a day Taking cloNIDine HCl 0.1 MG Tablet 1 tablet Oral twice daily Taking LORazepam 1 MG Tablet 1 tablet Oral twice daily As neededTaking Auvelity 45-105 MG Tablet Extended Release 1 tablet Oral twice a day , Notes to Pharmacist: *Reorder from [facility] for eRx and Interaction Alerts*Taking QUEtiapine Fumarate 100 MG Tablet 1 tablet at bedtime Oral Once a day Taking Lisdexamfetamine Dimesylate 70 MG Capsule 1 capsule in the morning Orally Once a day Taking Rosuvastatin Calcium 5 MG Tablet TAKE 1 TABLET BY MOUTH EVERY DAY AT BEDTIME Oral Taking Levothyroxine Sodium 25 MCG Tablet Oral DiscontinuedLevothyroxine Sodium 100 MCG Tablet Oral Medication List reviewed and reconciled with the patientDiscontinued Levothyroxine Sodium 100 MCG Tablet Oral Medication List reviewed and reconciled with the patient * Allergies: N .K.D.A.no[Allergies Verified] Objective: * Vitals: B P:141/94mm Hg, HR:83/min, Wt:147.2lbs, Wt-k.77 kg, Ht: 66.00 in, Ht-cm: 167.64 cm, BMI:23.76Index, Body Surface Area: 1.76. * Examination: P sychiatry: Appearance: w ell-groomed, well-nourished, .... Affect / mood: a ppropriate, full range. Attention: g ood. Attitude: c ooperative. Suicidal ideation: n one. Memory status: n o impairment noted. Degree of awareness of surroundings: w ithin normal limits.? Delusions: n o. Hallucinations: n o. Insight: g ood. Intellectual functioning: n o impairment noted. Judgement: g ood. Orientation: a wake, alert and oriented x 3. Perceptual disorders: n o perceptual disorder noted. Psychomotor activity: w ithin normal range. Speech / language: a ppropriate pitch/modulation, clear and coherent, normal rate, volume, and articulation (RVR), proper grammar used. Thought content: a ppropriate. Thought process: i ntact. G eneral Examination: - Mental Status Examination: - Patient reported improved mood but still feels overwhelmed. Mentioned feeling better compared to previous states. - Diagnostic Test Results and Labs: - TSH level on January 12, 2024, was significantly elevated at 39.9, indicating poorly controlled hypothyroidism. Assessment: * Assessment: 1. G eneralized anxiety disorder - F41.1 (Primary) 2 . P rimary insomnia - F51.01 3 . P ost-traumatic stress disorder, chronic - F43.12 4 .?Attention-deficit hyperactivity disorder, predominantly inattentive type - F90.0 5. M ajor depressive disorder, recurrent, moderate - F33.1 6 . S evere episode of recurrent major depressive disorder, without psychotic features - F33.2 7 . O ther specified hypothyroidism - E03.8 1. Hypothyroidism:- Patient reports recent diagnosis of hypothyroidism with a TSH of 39.9.- Currently on levothyroxine 25 mcg daily.Plan:- Continue levothyroxine 25 mcg daily.- Follow up with primary care provider in 6 weeks for repeat blood work and dose adjustment as needed.2. Insomnia:- Patient reports improved sleep, currently using quetiapine as needed.Plan:- Continue quetiapine as needed for sleep.- Encourage good sleep hygiene practices.3. Anxiety:- Patient is on Buspar twice daily and clonidine twice daily.- Lorazepam twice daily as needed.Plan:- Continue current medications as prescribed.- Consider referral to therapy for additional support if needed.4. ADHD:- Patient is on Vyvanse 70 mg daily, but currently taking 50 mg due to running out of the 70 mg dose.Plan:- Provide a new prescription for Vyvanse 70 mg daily.- Encourage patient to follow up if any concerns or side effects arise.5. Depression:- Patient reports some improvement in mood.- Awaiting approval for Spravato PA.Plan:- Continue current medications as prescribed.- Follow up with Cassidy regarding Spravato PA status.- Schedule a follow-up appointment in one month to reassess mood and medication effectiveness.6. Social stressors:- Patient reports feeling overwhelmed with organizing their house and recent loss of a pet.Plan:- Encourage patient to seek support from friends, family, or a therapist to help cope with stressors.- Provide resources for stress management and self-care. Plan: * Treatment: 2. P rimary insomnia Notes: quetiapine 100mg prn 3. A ttention-deficit hyperactivity disorder, predominantly inattentive type Refill Lisdexamfetamine Dimesylate Capsule, 70 MG, 1 capsule in the morning, Orally, Once a day, 30 days, 30 Capsule, Refills 0. 4. M ajor depressive disorder, recurrent, moderate Continue Auvelity Tablet Extended Release, 45-105 MG, 1 tablet, Oral, twice a day, 30 days, 60 Tablet, Refills 3, Notes to Pharmacist: *Reorder from [facility] for eRx and Interaction Alerts*. ? Notes: auvelity 45mg-105mg bid 5. S evere episode of recurrent major depressive disorder, without psychotic features Notes: do Robbie JUNG * Procedure Codes: 9 [id number] BEHAV ASSMT W/SCORE & DOCD/STAND [id number] VISIT COMPLEXITY INHERENT TO ONGOING CARE RELATED TO A PATIENT'S SINGLE, SERIOUS CONDITION OR A COMPLEX CONDITION * Follow Up: 4 Weeks (Reason: f/u depression, anxiety) * Billing Information: * Visit Code: 82172 OFFICE OUTPATIENT VISIT 25 MINUTES DETAILED HISTORY AND EXAM/MODERATE MEDICAL DECISION MAKING. * Procedure Codes: 06194 BEHAV ASSMT W/SCORE & DOCD/STAND INSTRUMENT. G2211 VISIT COMPLEXITY INHERENT TO ONGOING CARE RELATED TO A PATIENT'S SINGLE, SERIOUS CONDITION OR A COMPLEX CONDITION. * TER REPAIR TECHNICIAN Sign off status: Completed true * Provider: DON YOUNG Date: 04/03/2023 Generated for Lizz cadet/Yasir/Jos on: 0 04/11/2024 12:20 PM PRINTER REPAIR TECHNICIAN History and Physical Notes * HPI (History of Present Illness) Category Sub-Category Detail Notes Category Not es History of Presenting Problem Anxiety persistent Depression thinks would be bett er off if not here Depression screening PHQ-9 Little inte rest or pleasure in doing things: More than half the days Feeling down, depressed, or hopeless: Se veral days Trouble falling or staying asleep, or sl eeping too much: Several days Feeling tired or having little energy: M ore than half the days Poor appetite or overeating: Not at all Feeling bad about yourself o r that you are a failure, or have let yourself or your family down: More than half the days Trouble concentrating on thi ngs, such as reading the newspaper or watching television: Nearly every day Moving or speaking so slowly that other people could have noticed; or the opposite, being so fidgety or restless that you have been moving around a lot more than usual: Not at all Thoughts that you would be b isi off or of hurting yourself in some way: Not at all Total Score: 11 Interpretation: Moderate Depression Intervention Depression Screening Findings: P ositve Follow-Up for Depression: [facility] treatment assessment, Patient follow-up to return when and if necessary Suicide Risk Assessment Performed: 01/31 Additional Evaluation for De pression: Psychiatric interview and evaluation Name of the standardized too l used for adult depression screening:: Patient Health Questionnaire (PHQ-9) Examination Category Sub-Category Detail Notes Category Not es Psychiatry Appearance: well-groomed, well-nourished , ... Attitude: cooperative Psychomotor activity: within normal rang e Attention: good Degree of awareness of surroundings: wit hin normal limits Orientation: awake, alert and john ented x 3 Affect / mood: appropriate, full ra nge Speech / language: appropriate pitch/mo dulation, clear and coherent, normal rate, volume, and articulation (RVR), proper grammar used Insight: good Judgement: good Thought process: intact Thought content: appropriate Perceptual disorders: no perceptual diso rder noted Suicidal ideation: none Intellectual functioning: no impairment noted Memory status: no impairment noted Delusions: no Hallucinations: no General Examination - Mental Status Examination: - Patient reported improved mood but still feels overwhelmed. Mentioned feeling better compared to previous states. - Diagnostic Test Results and Labs: - TSH level on January 12, 2024, was significantly elevated at 39.9, indicating poorly controlled hypothyroidism.
--- OUTSIDE RECORDS SUMMARY | 2024-04-11 12:20 | XMS_ITS | Encounter Summary ---
Author Organization [facility] Address [address] [place] [address] Care Team Providers Care Shovel Mechanic Name Role Phone Jhony Vogt DO Primary Care Provider [phone] Encounter Details Date Type Department Care Team (Late st Contact Info) Description 2005 Orders Only [facility] [id number] [place] [address]. [address] [place] [address] Obed Rodriguez MD [address] [place] [address] Social History Tobacco Use Types Packs/Day Years Used Date Smoking Tobacco: Never Assessed Comments Unknown Sex and Gender Information Value Date Recorded Sex Assigned at Not on file Legal Sex Female 2:49 AM CLIENT SUPPORT CONSULTANT Gender Identity Not on file Sexual Orientation Not on file documented as of this encounter Progress Notes * Obed Rodriguez MD - 12/10/2007 8:10 AM CDT TIME:10:09 am PATIENT`S HOME PHONE: PATIENT`S WORK PHONE: PATIENT`S INSURANCE: [facility] WHO TOOK THE CALL: [facility]min [facility] LAST VISIT: 08-07-05 PCP: radha. WHO CALLED: Pharmacy called. PHARMACY NUMBER: [phone] SECTION 1: REQUESTED ACTION [email or web address] 08/18/05 at 10:10 am: MEDICATION REQUEST: Patient requests a refill. MEDICATIONS: WELLBUTRIN SR ORAL TABLET 12 HR 150 MG, 1 Two Times A Day, 60 Dispensed, 5 Fills, 30 Duration/Days Supply, status: CONTINUED, 08/07/2005. last fill 07-06-05 DOCTOR`S RESPONSE: jennifer 08/18/05 at 10:34 am Refill now with 3 additional refills. FINAL ACTION: sarah 08/18/05 at 11:39 am Called pharmacy at 08/18/05 at 11:39 am. called in refill above with 3 additional Electronically Signed by: Damián Ramachandran on Thursday, 2005 documented in this encounter Plan of Treatment Upcoming Encounters Date Type Department Care Team (Late st Contact Info) Description 04/14/2024 1:00 PM CLIENT SUPPORT CONSULTANT Office Visit [facility] PRODUCTION TRAINER Medical [facility] [address] [address] [place] [address] Nayan José MD [address] [place] [address] documented as of this encounter Visit Diagnoses Not on filedocumented in this encounter Care Teams Shovel Mechanic Relationship Specialty Start Date End Date Jhony Vogt DO [address] [facility] 162 [facility] [address] [place] [address] PCP - General Internal Medicine 02/21/20 documented as of this encounter
--- OUTSIDE RECORDS SUMMARY | 2024-04-11 12:20 | XMS_ITS | Encounter Summary ---
Author Organization [facility] Address [address] [place] [address] Care Team Providers Care Sewer Maintenance Supervisor Name Role Phone Jhony Vogt DO Primary Care Provider Encounter Details Date Type Department Care Team (Latest Contact Info) Description 09/02/2002 Outpatient Historical HIS PATIENT IN A BED Rustam Cruz MD NO ADDRESS ON FILE Nayan José MD [address] [place] [address] THREAT LABOR NEC-ANTEPAR (Primary Dx) Social History Tobacco Use Types Packs/Day Years Used Date Smoking Tobacco: Never Assessed Comments Unknown Sex and Gender Information Value Date Recorded Sex Assigned at Not on file Legal Sex Female 2:49 AM RECRUITING ASSISTANT Gender Identity Not on file Sexual Orientation Not on file documented as of this encounter Plan of Treatment Upcoming Encounters Date Type Department Care Team (Late st Contact Info) Description 04/14/2024 1:00 PM RECRUITING ASSISTANT Office Visit [facility] IT DATA ARCHITECT Medical [place] [address] [facility] [address] [place] [address] Nayan José MD [address] [place] [address] documented as of this encounter Visit Diagnoses Diagnosis Other threatened labor, antepartum- Primary documented in this encounter Care Teams Sewer Maintenance Supervisor Relationship Specialty Start Date End Date Jhony Vogt DO 68[address] [facility] 162 [facility] 204 [place] [address] PCP - General Internal Medicine 02/21/20 documented as of this encounter
--- OUTSIDE RECORDS SUMMARY | 2024-04-11 12:20 | XMS_ITS | Clinical Summary ---
Author Organization [address] Address [facility]4 [place] [address] Care Team Providers Care Stave Log Cut Off Saw Operator Name Role Phone Nayan José MD Primary Care Provider [phone] Allergies No known active allergies Medications ibuprofen (ADVIL,MOTRIN) 600 mg tablet Take 1 tablet (600 mg total) by mouth 3 (three) times a day with meals 15 tablet 06/09/2020 Active oxyCODONE (ROXICODONE) 5 mg immediate release tabletIndication s:Pain Take 1 tablet (5 mg total) by mouth every 4 (four) hours as needed for pain 6 tablet 06/09/2020 Active lidocaine (ASPERCREME) 4 % adhesive patch,medicated Place 1 patch on the skin 2 (two) times a day as needed (pain) 15 patch 06/09/2020 Active Encounters Date Type Department Care Team Description 01/14/2024 1:15 PM ACCOUNTING BOOKKEEPER - 01/14/2024 11:59 PM ACCOUNTING BOOKKEEPER Hospital Encounter [address] [place] [address] Screening mammogram, encounter for Discharge Disposition: Discharge to home or self care from Last 3 Months Surgical History Surgery Date Site/Laterality Comments AZ LIG/TRNSXJ FLP TUBE ABDL/ VAG APPR UNI/BI Tubal Ligation - (Added by TW Conv) HYSTEROSCOPY Hysteroscopy With Endometrial Ablation - (Added by TW Conv) Medical History Medical History Date Comments Personal history of other en docrine, nutritional and metabolic disease History of thyroid d isease - (Added by TW Conv) Personal history of other di seases of the circulatory system History of hypertension - (A dded by ETHAN Conv) Social History Tobacco Use Types Packs/Day Years Used Date Smoking Tobacco: Never Comments Unknown Sex and Gender Information Value Date Recorded Sex Assigned at Not on file Legal Sex Female 4:31 AM ACCOUNTING BOOKKEEPER Gender Identity Not on file Sexual Orientation Not on file Obstetrics History Last Filed Vital Signs Vital Sign Reading Time Taken Comments Blood Pressure 156/88 04/19/2023 7:30 AM ACCOUNTING BOOKKEEPER Pulse 91 04/19/2023 10:30 AM ACCOUNTING BOOKKEEPER Temperature 36.8 C (98.2 F) 04/19/2023 2:54 AM ACCOUNTING BOOKKEEPER Respiratory Rate 18 04/19/2023 2:54 AM ACCOUNTING BOOKKEEPER Oxygen Saturation 97% 04/19/2023 10:30 AM ACCOUNTING BOOKKEEPER Inhaled Oxygen Concentration - - Weight 59 kg (130 lb) 06/09/2020 10:41 AM CDT Height 167.6 cm (5' 6 ) 06/09/2020 10:41 AM CDT Body Mass Index 20.98 06/09/2020 10:41 AM CDT Plan of Treatment Health Maintenance Due Date Last Done Comments Cervical Cancer Screening 1970 Colon Cancer Screening-Colonoscopy 1970 Depression Screening 1970 Hepatitis C Screening 1970 Regular Well Visit/Exam 18-64 1988 Zoster Vaccine (1 of 2) 2020 Influenza Vaccine (#1) 2023 8, 01/09/2016, 12/07/2014, Additional history exists DTaP/Tdap/Td Vaccine (2 - Td or Tdap) 12/07/2024 12/07/2014, 09/20/2001 Breast Cancer Screening-Mammogram 01/13/2025 01/14/2024, 05/13/2022, 03/05/2021, Additional history exists Pneumococcal vaccine <65 Aged Out No longer eligible based on patient's age to complete this topic Procedures Procedure Name Priority Date/Time Associated Diagnosis Comments SCREENING MAMMOGRAM BILATERAL W JOHN Schedule Routine, Read Routine (OP Routine) 01/14/2024 1:56 PM ACCOUNTING BOOKKEEPER Screening mammogram, encounter for from Last 3 Months Results * Screening Mammogram Bilateral W John (01/14/2024 1:56 PM ACCOUNTING BOOKKEEPER) Anatomical Region Laterality Modality Breast Bilateral Mammography Narrative 01/15/2024 10:47 AM ACCOUNTING BOOKKEEPER Mammogram Technique: Bilateral Digital Breast Tomosynthesis, Bilateral C-view 2D Screening mammogram. Views obtained: bilateral craniocaudal and bilateral mediolateral oblique. Computer Aided Detection was performed. Mammogram Findings: The present examination has been compared to prior imaging studies performed at [facility] on 08/17/2019, 03/05/2021 and 05/13/2022. The breasts are heterogeneously dense, which may obscure small masses. There is no suspicious abnormality in either breast. Impression: There is no mammographic evidence of malignancy. Annual screening mammography is recommended. If supplemental screening is desired, breast MRI would be recommended in this patient with heterogeneously dense breasts. OVERALL FINAL ASSESSMENT: BI-RADS CATEGORY 1: Negative. Procedure Note Mary Erickson MD - 01/15/2024 Mammogram Technique: Bilateral Digital Breast Tomosynthesis, Bilateral C-view 2D Screening mammogram. Views obtained: bilateral craniocaudal and bilateral mediolateral oblique. Computer Aided Detection was performed. Mammogram Findings: The present examination has been compared to prior imaging studies performed at [facility] on 08/17/2019, 03/05/2021 and 05/13/2022. The breasts are heterogeneously dense, which may obscure small masses. There is no suspicious abnormality in either breast. Impression: There is no mammographic evidence of malignancy. Annual screening mammography is recommended. If supplemental screeningis desired, breast MRI would be recommended in this patient with heterogeneously dense breasts. OVERALL FINAL ASSESSMENT: BI-RADS CATEGORY 1: Negative. us Self Screening Mammogram IMG MAMMO PROCEDURES Fi nal Result from Last 3 Months Insurance [facility] FEDERAL FEDERAL Care Teams Stave Log Cut Off Saw Operator Relationship Specialty Start Date End Date Nayan José MD [address] [facility] [address] [place] [address] PCP - General 04/30/17
--- OUTSIDE RECORDS SUMMARY | 2024-04-11 12:20 | XMS_ITS | Referral Summary ---
Author Organization [id number] [facility] Address [address] [place] [address] Care Team Providers Care Chain Mender Name Role Phone Nayan José MD Primary Care Provider Encounters Date Type Department Care Team Description 01/14/2024 1:15 PM CORPORATE ASSOCIATE ATTORNEY - 01/14/2024 11:59 PM CORPORATE ASSOCIATE ATTORNEY Hospital Encounter [address] [place] [address] Screening mammogram, encounter for Discharge Disposition: Discharge to home or self care from Last 3 Months Allergies No known active allergies Medications ibuprofen [...] as needed (pain) 15 patch 06/09/2020 Active Social History Tobacco Use Types Packs/Day Years Used Date Smoking Tobacco: Never Comments Unknown Sex and Gender Information Value Date Recorded Sex Assigned at Not on file Legal Sex Female 4:31 AM CORPORATE ASSOCIATE ATTORNEY Gender Identity Not on file Sexual Orientation Not on file Last Filed Vital Signs Vital Sign Reading Time Taken Comments Blood Pressure 156/88 04/19/2023 7:30 AM CORPORATE ASSOCIATE ATTORNEY Pulse 91 04/19/2023 10:30 AM CORPORATE ASSOCIATE ATTORNEY Temperature 36.8 C (98.2 F) 04/19/2023 2:54 AM CORPORATE ASSOCIATE ATTORNEY Respiratory Rate 18 04/19/2023 2:54 AM CORPORATE ASSOCIATE ATTORNEY Oxygen Saturation 97% 04/19/2023 10:30 AM CORPORATE ASSOCIATE ATTORNEY Inhaled Oxygen Concentration - - Weight 59 kg (130 lb) 06/09/2020 10:41 AM CDT Height 167.6 cm (5' 6 ) 06/09/2020 10:41 AM CDT Body Mass Index 20.98 06/09/2020 10:41 AM CDT Plan of Treatment Not on file Procedures Procedure Name Priority Date/Time Associated Diagnosis Comments SCREENING MAMMOGRAM BILATERAL W JOHN Schedule Routine, Read Routine (OP Routine) 01/14/2024 1:56 PM CORPORATE ASSOCIATE ATTORNEY Screening mammogram, encounter for from Last 3 Months Results * Screening Mammogram Bilateral W John (01/14/2024 1:56 PM CORPORATE ASSOCIATE ATTORNEY) Anatomical Region Laterality Modality Breast Bilateral Mammography Narrative 01/15/2024 10:47 AM CORPORATE ASSOCIATE ATTORNEY Mammogram Technique: Bilateral Digital Breast Tomosynthesis, Bilateral C-view 2D Screening mammogram. Views obtained: bilateral craniocaudal and bilateral mediolateral oblique. Computer Aided Detection was performed. Mammogram Findings: The present examination has been compared to prior imaging studies performed at [facility] on 08/17/2019, 03/05/2021 and 05/13/2022. The [...] compared to prior imaging studies performed at [facility] on 08/17/2019, 03/05/2021 and 05/13/2022. The [...] nal Result from Last 3 Months Insurance [facility] FEDERAL Member Subscriber Plan / Payer (Ef fective 2004-Present) Name:Nany Noriega Relation to Subscriber:Spouse Name:ELIZABETH NORIEGA Date of :1958 (Work) Address: [address] [place] [address] Payer ID:[id number] (NAIC) Group ID:[id number] Type:[employer] Address: [address] [place] [id number] Care Teams Chain Mender Relationship Specialty Start Date End Date Nayan José MD [address] [facility] [address] [place] [address] PCP - General 04/30/17
--- OUTSIDE RECORDS SUMMARY | 2024-04-11 12:20 | XMS_ITS | Encounter Summary ---
Author Organization [facility] Address [address] [place] [address] Care Team Providers Care Electric Motor Mechanic Name Role Phone Jhony Vogt DO Primary Care Provider [phone] Encounter Details Date Type Department Care Team ([facility] Contact Info) Description 06/29/2001 Outpatient Historical [facility] Internal Medicine [facility] [address] [facility] [address] [address] Obed Rodriguez MD [facility]4 [place] [address] Social History Tobacco Use Types Packs/Day Years Used Date Smoking Tobacco: Never Assessed Comments Unknown Sex and Gender Information Value Date Recorded Sex Assigned at Not on file Legal Sex Female 2:49 AM PICKLING GRADER Gender Identity Not on file Sexual Orientation Not on file documented as of this encounter Plan of Treatment Upcoming Encounters Date Type Department Care Team ([facility] Contact Info) Description 04/14/2024 1:00 PM PICKLING GRADER Office Visit [facility] DIRECTOR CLOUD TRANSFORMATION [facility] [address] [facility] [address] [place] [address] Nayan José MD [address] [facility] [address] [place] [address] documented as of this encounter Visit Diagnoses Not on filedocumented in this encounter Care Teams Electric Motor Mechanic Relationship Specialty Start Date End Date Jhony Vogt DO 68[address] [facility] 162 [facility] [address] [place] [address] PCP - General Internal Medicine 02/21/20 documented as of this encounter
--- OUTSIDE RECORDS SUMMARY | 2024-04-11 12:20 | XMS_ITS ---
Author Organization [facility] Guest of a Guest Address [address] [facility] [address] [place] [address] Care Team Providers Care Spring Bender Name Role Phone Sosa, Drayl Unavailable [phone] REASON FOR VISIT vyvanse Medications Medication SIG (Take, Route, Frequency, Duration) Notes Start Date End Date Status Lisdexamfetamine Dimesylate 70 MG 1 capsule in the morning Orally Once a day for 30 days Active Social History Sex Assigned At : Social History Observation Description Sex Assigned At Female Encounters Encounter Location Date Provider Diagnosis [facility] [employer] [facility] [address] [place] [address] 03/04/2024 Daryl Sosa Attention-deficit hyperactivity disorder, predominantly inattentive type F90.0 Assessments Encounter Date Diagnosis (ICD Code) Assessment Notes Treatment Notes Treatment Clinical Notes Section Notes 03/04/2024 Attention-deficit hyperactivity disorder, predominantly inattentive type (ICD-10 - F90.0) Plan Of Treatment Medication Medication Name Sig Start Date Stop Date Notes Lisdexamfetamine Dimesylate 70 MG 1 caps ule in the morning Orally Once a day for 30 days Next Appt Details Provider Name:Daryl potts, 06/07/2024 10:00:00 AM, [address], [facility] [address], [place], [address], Progress Notes * SASHA DURÁN RDOB: 1 (53 yo F)Acc No.[id number]:03/04/2024 Patient: Denny BURGESSSASHA :1970 A ge:53 Y S ex:Female Address:[address] [place] [address] [place], [address] * Refills Refill Lisdexamfetamine Dimesylate Capsule, 70 MG, Orally, 30 Capsule, 1 capsule in the morning, Once a day, 30 days, Refills=0 Subjective: * Chief Complaints: * V yvanse * Medical History: * Surgical History: * Hospitalization/Major Diagno stic Procedure: * Medications: Objective: * Vitals: * Physical Examination: Assessment: * Assessment: 1. A ttention-deficit hyperactivity disorder, predominantly inattentive type - F90.0 (Primary)? Plan: * Treatment: * Procedure Codes: * true * Date: Generated for Lizz cadet/Yasir/Jos on: 0 04/11/2024 12:20 PM PIPE STRIPPER
--- OUTSIDE RECORDS SUMMARY | 2024-04-11 12:20 | XMS_ITS | Encounter Summary ---
Author Organization [facility] Address [address] [place] [address] Care Team Providers Care Fish Bait Processing Supervisor Name Role Phone Jhony Vogt DO Primary Care Provider [phone] Encounter Details Date Type Department Care Team ([facility] Contact Info) Description 04/28/2000 Outpatient Historical [facility] Internal Medicine [facility] [address] [facility] [address] [address] Obed Rodriguez MD [facility]4 [place] [address] Social History Tobacco Use Types Packs/Day Years Used Date Smoking Tobacco: Never Assessed Comments Unknown Sex and Gender Information Value Date Recorded Sex Assigned at Not on file Legal Sex Female 2:49 AM CISTERN ROOM OPERATOR Gender Identity Not on file Sexual Orientation Not on file documented as of this encounter Plan of Treatment Upcoming Encounters Date Type Department Care Team ([facility] Contact Info) Description 04/14/2024 1:00 PM CISTERN ROOM OPERATOR Office Visit [facility] MARK UP DESIGNER [facility] [address] [facility] [address] [place] [address] Nayan José MD [address] [facility] [address] [place] [address] documented as of this encounter Visit Diagnoses Not on filedocumented in this encounter Care Teams Fish Bait Processing Supervisor Relationship Specialty Start Date End Date Jhony Vogt DO 68[address] [facility] 162 [facility] [address] [place] [address] PCP - General Internal Medicine 02/21/20 documented as of this encounter
--- OUTSIDE RECORDS SUMMARY | 2024-04-11 12:20 | XMS_ITS | Encounter Summary ---
Author Organization [facility] Address [address] [place] [address] Care Team Providers Care Housekeeping Assistant Name Role Phone Nayan José MD Primary Care Provider [phone] Encounter Details Date Type Department Care Team (Late st Contact Info) Description 04/19/[address] [address] Jenifer Posey, RN Social History Tobacco Use Types Packs/Day Years Used Date Smoking Tobacco: Never Comments Unknown Sex and Gender Information Value Date Recorded Sex Assigned at Not on file Legal Sex Female 4:31 AM SENIOR ANALYTIC CONSULTANT Gender Identity Not on file Sexual Orientation Not on file documented as of this encounter Plan of Treatment Not on file documented as of this encounter Visit Diagnoses Not on filedocumented in this encounter Care Teams Housekeeping Assistant Relationship Specialty Start Date End Date Nayan José MD [address] [facility] [address] [place] [address] PCP - General 04/30/17 documented as of this encounter
--- OUTSIDE RECORDS SUMMARY | 2024-04-11 12:20 | XMS_ITS | Encounter Summary ---
Author Organization [facility] Address [address] [place] [address] Care Team Providers Care Trial Consultant Name Role Phone Jhony Vogt DO Primary Care Provider [phone] Encounter Details Date Type Department Care Team (Latest Contact Info) Description 09/03/2002 Inpatient Historical HIS PATIENT IN A BED Nayan José MD [address] [address] DEL W 2 DEG LACERAT-DEL (Primary Dx) Social History Tobacco Use Types Packs/Day Years Used Date Smoking Tobacco: Never Assessed Comments Unknown Sex and Gender Information Value Date Recorded Sex Assigned at Not on file Legal Sex Female 2:49 AM FORDER OPERATOR Gender Identity Not on file Sexual Orientation Not on file documented as of this encounter Plan of Treatment Upcoming Encounters Date Type Department Care Team (Late st Contact Info) Description 04/14/2024 1:00 PM FORDER OPERATOR Office Visit [facility] TRACKLESS TROLLEY DRIVER Medical [place] [address] [facility] [address] [place] [address] Nayan José MD [address] [place] [address] documented as of this encounter Visit Diagnoses Diagnosis Second-degree perineal laceration, with delivery- Primary documented in this encounter Care Teams Trial Consultant Relationship Specialty Start Date End Date Jhony Vogt DO [address] [facility] [address] [place] [address] PCP - General Internal Medicine 02/21/20 documented as of this encounter
--- OUTSIDE RECORDS SUMMARY | 2024-04-11 12:21 | XMS_ITS | Encounter Summary ---
Author Organization [facility] Address [address] [place] [address] Care Team Providers Care Sample Color Maker Name Role Phone Jhony Vogt DO Primary Care Provider [phone] Encounter Details Date Type Department Care Team ([facility] Contact Info) Description 09/08/2003 Outpatient Historical [facility] Internal Medicine [facility] [address] [facility] [address] [address] Obed Rodriguez MD [facility] [place] [address] Social History Tobacco Use Types Packs/Day Years Used Date Smoking Tobacco: Never Assessed Comments Unknown Sex and Gender Information Value Date Recorded Sex Assigned at Not on file Legal Sex Female 2:49 AM DENTAL SERVICES DIRECTOR Gender Identity Not on file Sexual Orientation Not on file documented as of this encounter Plan of Treatment Upcoming Encounters Date Type Department Care Team ([facility] Contact Info) Description 04/14/2024 1:00 PM DENTAL SERVICES DIRECTOR Office Visit [facility] COLLATOR HAND [facility] [address] [facility] [address] [place] [address] Nayan José MD [address] [facility] [address] [place] [address] documented as of this encounter Visit Diagnoses Not on filedocumented in this encounter Care Teams Sample Color Maker Relationship Specialty Start Date End Date Jhony Vogt DO [address] [facility] 162 [facility] [address] [place] [address] PCP - General Internal Medicine 02/21/20 documented as of this encounter
--- OUTSIDE RECORDS SUMMARY | 2024-04-11 12:21 | XMS_ITS | Encounter Summary ---
Author Organization [employer] Address [address] [place] [address] Care Team Providers Care Hydraulic Plumber Helper Name Role Phone Jhony Vogt DO Primary Care Provider [phone] Encounter Details Date Type Department Care Team (Late st Contact Info) Description 07/07/2005 Orders Only [facility] [address] 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 WHO CALLED: Pharmacy called. PHARMACY NUMBER: [phone] SECTION 1: REQUESTED ACTION sraah 07/07/05 at 09:44 am: MEDICATION REQUEST: Patient requests a refill. MEDICATIONS: STRATTERA ORAL CAPSULE CONVENTIONAL 40 MG, 1 Two Times A Day, 60 Dispensed, 4 Fills, status: CONTINUED, 12/27/2004. DOCTOR`S RESPONSE: jennifer 07/07/05 at 09:46 am Please schedule an appointment with me in the next 4 weeks. Refill now with 1 additional refill. FINAL ACTION: sarah 07/07/05 at 10:52 am Called pharmacy at 07/07/05 at 10:52 am. called in refill above with 1 additional and left message informing pt to schedule an appt Electronically Signed by: Damián Ramachandran on Thursday, July 07, 2005 documented in this encounter Plan of Treatment Upcoming Encounters Date Type Department Care Team (Late st Contact Info) Description 04/14/2024 1:00 PM AUTOMOBILE RENTAL CLERK Office Visit [facility] AUTOMATION TECHNICIAN Medical [facility] [address] [facility] [address] [place] [address] Nayan José MD [address] [place] [address] documented as of this encounter Visit Diagnoses Not on filedocumented in this encounter Care Teams Hydraulic Plumber Helper Relationship Specialty Start Date End Date Jhony Vogt DO [address] [facility] 162 [facility] 204 [place] [address] PCP - General Internal Medicine 02/21/20 documented as of this encounter
--- OUTSIDE RECORDS SUMMARY | 2024-04-11 12:21 | XMS_ITS ---
Author Organization [facility] [employer] Address [address] [place] [address] Care Team Providers Care Microbiology Lab Assistant Name Role Phone Daryl Soas Unavailable [phone] Allergies No Known Allergies REASON FOR VISIT 1 month f/u Medications Medication SIG (Take, Route, Frequency, Duration) Notes Start Date End Date Status Lisdexamfetamine Dimesylate 70 MG 1 capsule in the morning Orally Once a day for 30 days Active Caplyta 10.5 MG 1 capsule Orally once daily for 30 days 10/08/2023 Active LORazepam 1 MG 1 tablet Oral twice daily for 30 days As needed 10/23/2023 Active Rosuvastatin Calcium 5 MG TAKE 1 TABLET BY MOUTH EVERY DAY AT BEDTIME Oral for 90 Days Active Levothyroxine Sodium 25 MCG Oral for 90 Days Active QUEtiapine Fumarate 100 MG 1 tablet at bedtime Oral Once a day for 90 days As needed Active LORazepam 1 MG 1 tablet Oral twice daily for 30 days As needed Active Auvelity 45-105 MG 1 tablet Oral twice a day for 30 days *Reorder from [employer] for eRx and Interaction Alerts* Active valACYclovir HCl 500 MG Oral 07/09/2023 Active amLODIPine Besylate 5 MG Oral 07/09/2023 Active busPIRone HCl 15 MG 1 tablet Oral Twice a day for 90 days Active cloNIDine HCl 0.1 MG 1 tablet Oral twice daily for 90 days Active Social History Tobacco Use: Social History Observation Description Date Details (start date - stop date) Never Smoker NA - NA Sex Assigned At : Social History Observation Description Sex Assigned At Female Tobacco Control (Standard) Question Answer Notes Tobacco use: Nonsmoker Vital Signs Blood pressure systolic 141 mm Hg 03/15/19 25 Blood pressure diastolic 84 mm Hg 025 Heart Rate 94 /min 03/15/2024 Height 66.00 in 03/15/2024 Weight 141 lbs 03/15/2024 BMI 22.76 kg/m2 03/15/2024 Height-cm 167.64 cm 03/15/2024 Weight-kg 63.96 kg 03/15/2024 Encounters Encounter Location Date Provider Diagnosis [facility] [employer] [facility] [address] [facility] [address] [place] [address] 03/15/2024 Daryl Sosa Generalized anxiety disorder F41.1 ; Primary insomnia F51.01 ; Post-traumatic stress disorder, chronic F43.12 ; Attention-deficit hyperactivity disorder, predominantly inattentive type F90.0 ; Major depressive disorder, recurrent, moderate F33.1 and Other specified hypothyroidism E03.8 Assessments Encounter Date Diagnosis (ICD Code) Assessment Notes Treatment Notes Treatment Clinical Notes Section Notes 03/15/2024 Generalized anxiety disorder (ICD-10 - F41.1) 03/15/2024 Primary insomnia (ICD-10 - F51.01) quetiapine 100mg prn 03/15/2024 Post-traumatic stress disorder, chronic (ICD-10 - F43.12) 03/15/2024 Attention-deficit hyperactivity disorder, predominantly inattentive type (ICD-10 - F90.0) 03/15/2024 Major depressive disorder, recurrent, moderate (ICD-10 - F33.1) auvelity 45mg-105mg bid 03/15/2024 Other specified hypothyroidism (ICD-10 - E03.8) 03/15/2024 Other 1. Medication adherence: - Patient reports improved adherence to medications, taking them at bedtime as prescribed. Plan: - Continue to encourage medication adherence. - Provide education on the importance of taking medications as prescribed. 2. Depression: - Patient reports stable mood and improvement in depressive symptoms. - Currently on Auvelity twice a day. Plan: - Continue current treatment with Auvelity twice a day. - Schedule a follow-up appointment in 3 months to monitor progress. 3. Anxiety: - Patient reports reduced anxiety levels. - Currently on buspirone 15 mg twice a day, clonidine 0.1 mg twice a day, and lorazepam 1 mg twice a day as needed. Plan: - Continue current treatment regimen. - Monitor for any changes in anxiety levels during follow-up appointments. 4. ADHD: - Patient is currently on lisdexamfetamine 70 mg daily. Plan: - Continue with the current treatment plan. - Monitor for any changes in ADHD symptoms during follow-up appointments. 5. Insomnia: - Patient is currently on quetiapine 100 mg at bedtime. Plan: - Continue with the current treatment plan. - Monitor for any changes in sleep patterns during follow-up appointments. 6. Pharmacy change request: - Patient requests to transfer all prescriptions to [facility]. Plan: - Update pharmacy information in the patient's chart. - Send all current prescriptions to the requested pharmacy. 7. Thyroid function: - Patient reports stable thyroid function. Plan: - Continue to monitor thyroid levels during routine lab work. - Adjust treatment as needed. Follow-up: - Schedule a follow-up appointment in 3 months to monitor the patient's progress and address any concerns or changes in symptoms. Plan Of Treatment Medication Medication Name Sig Start Date Stop Date Notes Lisdexamfetamine Dimesylate 70 MG 1 capsule in the morning Orally Once a day for 30 days QUEtiapine Fumarate 100 MG 1 tablet at bedtime Oral Once a day for 90 days LORazepam 1 MG 1 tablet Oral twice daily for 30 days Auvelity 45-105 MG 1 tablet Oral twice a day for 30 days *Reorder from [employer] for eRx and Interaction Alerts* busPIRone HCl 15 MG 1 tablet Oral Twice a day for 90 days cloNIDine HCl 0.1 MG 1 tablet Oral twice daily for 90 days Treatment Notes Assessment Notes Primary insomnia quetiapine 100mg prn Major depressive disorder, recurrent, mo derate auvelity 45mg-105mg bid Next Appt Details Follow Up: 3 Months, Reason: f/u depression, adhd Provider Name:Daryl potts, 06/07/2024 10:00:00 AM, [address], [facility] [address], [place], [address], Progress Notes * SASHA DURÁN RDOB: 1 (53 yo F)Acc No.[id number]:03/15/2024 Patient: Denny SASHA BURGESS Provider: DON YOUNG :1970 A ge:53 Y S ex:Female Date:03/15/2024 Address:[address] [facility] Subjective: * Chief Complaints: * 1 month f/u * HPI: D epression Screening: DANIELA-7 (2018 Edition) F eeling nervous, anxious, or on edge?More than half the days, N ot being able to stop or control worrying M ore than half the days. C [place]-Suicide Severity Rating Scale: Suicide Risk (CSRS-screener) i n the past one month Have you wished you were or wished you could go to sleep and not wake up? N o, i n the past one month Have you actually had any thoughts of killing yourself? N o. D epression screening: PHQ-9 L ittle interest or pleasure in doing things S everal days, F eeling down, depressed, or hopeless S everal days, T rouble falling or staying asleep, or sleeping too much S everal days, F eeling tired or having little energy S everal days, P oor appetite or overeating S everal days, F eeling bad about yourself or that you are a failure, or have let yourself or your family down N ot at all, T rouble concentrating on things, such as reading the newspaper or watching television N ot at all, M oving or speaking so slowly that other people could have noticed; or the opposite, being so fidgety or restless that you have been moving around a lot more than usual N ot at all, T houghts that you would be better off or of hurting yourself in some way N ot at all, T otal Score 5, I nterpretation M ild Depression. I ntervention D epression Screening Findings?David Perry ollow-Up for Depression M ental health treatment assessment, Patient follow-up to return when and if necessary, S uicide Risk Assessment Performed 0 03/15/2024 , A dditional Evaluation for Depression P sychiatric interview and evaluation, N jazmine of the standardized tool used for adult depression screening: P atient Health Questionnaire (PHQ-9). H istory of Presenting Problem: Anxiety p ersistent. D epression t harshal would be better off if not here. F unctional Status: the note is transcribed using speech recognition software. It is a reflection of a visit with the patient. It might have some inaccuracy, including medication names and transcribing errors, though efforts have been made to correct them. Chief complaint- Medication management, general health update. The patient reports improved adherence to her medication regimen, taking all medications at bedtime when she remembers in the evening. She states that she feels significantly better since being consistent with her medications. The patient mentions having to discontinue Vibance for a week but did not experience psychosis as she normally would, attributing this to her improved medication adherence. She reports that her depression is more stable and better managed. The patient describes her current life situation as busy. She mentions having cracked her ribs twice without knowing the cause. 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 The patient is also trying to resume attending the club for exercise. The patient requests to transfer all her prescriptions to [facility], as she believes they manage her medications better than her current pharmacy. * Medical History: * Surgical History: * [...] es, D o you have Power of Travel Writer for Health or Medical? N o. * Medications: T akingbusPIRone HCl 15 MG Tablet 1 tablet Oral Twice a day cloNIDine HCl 0.1 MG Tablet 1 tablet Oral twice daily LORazepam 1 MG Tablet 1 tablet Oral twice daily As neededAuvelity 45-105 MG Tablet Extended Release 1 tablet Oral twice a day , Notes to Pharmacist: *[facility] from [facility] for eRx and Interaction Alerts*QUEtiapine Fumarate 100 MG Tablet 1 tablet at bedtime Oral Once a day As neededvalACYclovir HCl 500 MG Tablet Oral amLODIPine Besylate 5 MG Tablet Oral Caplyta 10.5 MG Capsule 1 capsule Orally once daily LORazepam 1 MG Tablet 1 tablet Oral twice daily As neededRosuvastatin Calcium 5 MG Tablet TAKE 1 TABLET BY MOUTH EVERY DAY AT BEDTIME Oral Levothyroxine Sodium 25 MCG Tablet Oral Lisdexamfetamine Dimesylate 70 MG Capsule 1 capsule in the morning Orally Once a day Medication List reviewed and reconciled with the patientTaking busPIRone HCl 15 MG Tablet 1 tablet Oral Twice a day Taking cloNIDine HCl 0.1 MG Tablet 1 tablet Oral twice daily Taking LORazepam 1 MG Tablet 1 tablet Oral twice daily As neededTaking Auvelity 45-105 MG Tablet Extended Release 1 tablet Oral twice a day , Notes to Pharmacist: *Reorder from [facility] for eRx and Interaction Alerts*Taking QUEtiapine Fumarate 100 MG Tablet 1 tablet at bedtime Oral Once a day As neededTaking valACYclovir HCl 500 MG Tablet Oral Taking amLODIPine Besylate 5 MG Tablet Oral Taking Caplyta 10.5 MG Capsule 1 capsule Orally once daily Taking LORazepam 1 MG Tablet 1 tablet Oral twice daily As neededTaking Rosuvastatin Calcium 5 MG Tablet TAKE 1 TABLET BY MOUTH EVERY DAY AT BEDTIME Oral Taking Levothyroxine Sodium 25 MCG Tablet Oral Taking Lisdexamfetamine Dimesylate 70 MG Capsule 1 capsule in the morning Orally Once a day Medication List reviewed and reconciled with the patient * Allergies: N .K.D.A.no[Allergies Verified] Objective: * Vitals: B P:141/84mm Hg, HR:94/min, Wt:141lbs, Wt-k.96 kg, Ht: 66.00 in, Ht-cm: 167.64 cm, BMI:22.76Index, Body Surface Area: 1.72. * Examination: P sychiatry: Appearance: w ell-groomed, [...] Examination: - Mental Status Examination: - Patient reports improved adherence to medication regimen, leading to better overall feeling and stability in mood. - Patient acknowledges previous issues with medication adherence, specifically forgetting nighttime doses. - Describes feeling more anxious when off medication but did not experience psychosis or loss of control. - Reports feeling busy and trying to manage personal affairs, indicating some level of functioning despite psychiatric symptoms. - Physical Examination: - Patient reports having cracked ribs twice, cause unknown. Assessment: * Assessment: 1. G eneralized anxiety disorder - F41.1 (Primary) 2 . P rimary insomnia - F51.01 3 . P ost-traumatic stress disorder, chronic - F43.12 4 .?Attention-deficit hyperactivity disorder, predominantly inattentive type - F90.0 5. M ajor depressive disorder, recurrent, moderate - F33.1 6 . O ther specified hypothyroidism - E03.8 Plan: * Treatment: 2. P rimary insomnia [...] Refills 3, Notes to Pharmacist: *Reorder from [facility] for eRx and Interaction Alerts*. ? Notes: auvelity 45mg-105mg bid 5. O thers Clinical Notes: 1. Medication adherence: - Patient reports improved adherence to medications, taking them at bedtime as prescribed. Plan: - Continue to encourage medication adherence. - Provide education on the importance of taking medications as prescribed. 2. Depression: - Patient reports stable mood and improvement in depressive symptoms. - Currently on Auvelity twice a day. Plan: - Continue current treatment with Auvelity twice a day. - Schedule a follow-up appointment in 3 months to monitor progress. 3. Anxiety: - Patient reports reduced anxiety levels. - Currently on buspirone 15 mg twice a day, clonidine 0.1 mg twice a day, and lorazepam 1 mg twice a day as needed. Plan: - Continue current treatment regimen. - Monitor for any changes in anxiety levels during follow-up appointments. 4. ADHD: - Patient is currently on lisdexamfetamine 70 mg daily. Plan: - Continue with the current treatment plan. - Monitor for any changes in ADHD symptoms during follow-up appointments. 5. Insomnia: - Patient is currently on quetiapine 100 mg at bedtime. Plan: - Continue with the current treatment plan. - Monitor for any changes in sleep patterns during follow-up appointments. 6. Pharmacy change request: - Patient requests to transfer all prescriptions to [facility] on [address]. Plan: - Update pharmacy information in the patient's chart. - Send all current prescriptions to the requested pharmacy. 7. Thyroid function: - Patient reports stable thyroid function. Plan: - Continue to monitor thyroid levels during routine lab work. - Adjust treatment as needed. Follow-up: - Schedule a follow-up appointment in 3 months to monitor the patient's progress and address any concerns or changes in symptoms. * Procedure Codes: 9 6127 BEHAV ASSMT W/SCORE & DOCD/STAND INSTRUMENT * Follow Up: 3 Months (Reason: f/u depression, adhd) * Billing Information: * Visit Code: 33954 OFFICE OUTPATIENT VISIT 25 MINUTES DETAILED HISTORY AND EXAM/MODERATE MEDICAL DECISION MAKING. * Procedure Codes: 44980 BEHAV ASSMT W/SCORE & DOCD/STAND INSTRUMENT. * RINTENDENT TRANSPORTATION Sign off status: Completed true * Provider: DON YOUNG Date: 0 03/15/2024 Generated for Lizz cadet/Yasir/Jos on: 0 04/11/2024 12:21 PM SUPERINTENDENT TRANSPORTATION History and Physical Notes * HPI (History of Present Illness) Category Sub-Category Detail Notes Category Not es History of Presenting Problem Anxiety persistent Depression thinks would be bett er off if not here Depression screening PHQ-9 Little inte rest or pleasure in doing things: Several days Feeling down, depressed, or hopeless: Se veral days Trouble falling or staying asleep, or sl eeping too much: Several days Feeling tired or having little energy: S everal days Poor appetite or overeating: Several day s Feeling bad about yourself o r that you are a failure, or have let yourself or your family down: Not at all Trouble concentrating on thi ngs, such as reading the newspaper or watching television: Not at all Moving or speaking so slowly that other people could have noticed; or the opposite, being so fidgety or restless that you have been moving around a lot more than usual: Not at all Thoughts that you would be b isi off or of hurting yourself in some way: Not at all Total Score: 5 Interpretation: Mild Depression Intervention Depression Screening Findings: P ositve Follow-Up for Depression: [facility] treatment assessment, Patient follow-up to return when and if necessary Suicide Risk Assessment Performed: 03/15 Additional Evaluation for De pression: Psychiatric interview and evaluation Name of the standardized too l used for adult depression screening:: Patient Health Questionnaire (PHQ-9) Depression Screening DANIELA-7 (2018 Edition) Feelin g nervous, anxious, or on edge: More than half the days Not being able to stop or control worryi ng: More than half the days [place]-Suicide Severity Rating Scale Suicide Risk (CSRS-screener) in the past one month Have you wished you were or wished you could go to sleep and not wake up?: No in the past one month Have y ou actually had any thoughts of killing yourself?: No Examination Category Sub-Category Detail Notes Category Not [...] Examination - Mental Status Examination: - Patient reports improved adherence to medication regimen, leading to better overall feeling and stability in mood. - Patient acknowledges previous issues with medication adherence, specifically forgetting nighttime doses. - Describes feeling more anxious when off medication but did not experience psychosis or loss of control. - Reports feeling busy and trying to manage personal affairs, indicating some level of functioning despite psychiatric symptoms. - Physical Examination: - Patient reports having cracked ribs twice, cause unknown.
--- OUTSIDE RECORDS SUMMARY | 2024-04-11 12:21 | XMS_ITS | Encounter Summary ---
Author Organization [facility] Address [address] [place] [address] Care Team Providers Care White Sugar Syrup Operator Name Role Phone Jhony Vogt Primary Care Provider [phone] Encounter Details Date Type Department Care Team (Late Contact Info) Description 08/07/2005 Outpatient Historical [facility] Internal Medicine [facility] [address] [facility] [address] [place] [address] Obed Rodriguez MD [address] [place] [address] Social History Tobacco Use Types Packs/Day Years Used Date Smoking Tobacco: Never Assessed Comments Unknown Sex and Gender Information Value Date Recorded Sex Assigned at Not on file Legal Sex Female 2:49 AM EXHAUST EMISSIONS AUTOMOTIVE TECHNICIAN Gender Identity Not on file Sexual Orientation Not on file documented as of this encounter Last Filed Vital Signs Vital Sign Reading Time Taken Comments Blood Pressure 128/100 08/07/2005 10:15 AM CDT Pulse 80 08/07/2005 10:15 AM CDT Temperature 36.9 C (98.5 F) 08/07/2005 10:15 AM CDT Respiratory Rate 20 08/07/2005 10:15 AM CDT Oxygen Saturation - - Inhaled Oxygen Concentration - - Weight 76.2 kg (168 lb) 08/07/2005 10:15 AM CDT Height 167.6 cm (5' 6 ) 08/07/2005 10:15 AM CDT Body Mass Index 27.12 08/07/2005 10:15 AM CDT documented in this encounter Plan of Treatment Upcoming Encounters Date Type Department Care Team (Late st Contact Info) Description 04/14/2024 1:00 PM EXHAUST EMISSIONS AUTOMOTIVE TECHNICIAN Office Visit [facility] FLOOR SUPERVISOR Medical [facility] [address] [facility] [address] [place] [address] Nayan José MD [address] [facility] [address] [place] [address] documented as of this encounter Visit Diagnoses Not on filedocumented in this encounter Care Teams White Sugar Syrup Operator Relationship Specialty Start Date End Date Jhony Vogt DO [address] [facility] 162 [facility] [address] [place] [address] PCP - General Internal Medicine 02/21/20 documented as of this encounter
--- OUTSIDE RECORDS SUMMARY | 2024-04-11 12:21 | XMS_ITS | Encounter Summary ---
Author Organization [facility] Address [address] [place] [address] Care Team Providers Care Sausage Machine Operator Name Role Phone Jhony Vogt Primary Care Provider [phone] Encounter Details Date Type Department Care Team (Late Contact Info) Description 10/28/2005 Outpatient Historical [facility] Internal Medicine [facility] [address] [facility] [address] [place] [address] Obed Rodriguez MD [address] [place] [address] Social History Tobacco Use Types Packs/Day Years Used Date Smoking Tobacco: Never Assessed Comments Unknown Sex and Gender Information Value Date Recorded Sex Assigned at Not on file Legal Sex Female 2:49 AM CLINCHING MACHINE OPERATOR Gender Identity Not on file Sexual Orientation Not on file documented as of this encounter Last Filed Vital Signs Vital Sign Reading Time Taken Comments Blood Pressure 140/100 10/28/2005 9:45 AM CDT Pulse 96 10/28/2005 9:45 AM CDT Temperature 36.8 C (98.2 F) 10/28/2005 9:45 AM CDT Respiratory Rate 22 10/28/2005 9:45 AM CDT Oxygen Saturation - - Inhaled Oxygen Concentration - - Weight 76.2 kg (168 lb) 10/28/2005 9:45 AM CDT Height 167.6 cm (5' 6 ) 10/28/2005 9:45 AM CDT Body Mass Index 27.12 10/28/2005 9:45 AM CDT documented in this encounter Plan of Treatment Upcoming Encounters Date Type Department Care Team (Late st Contact Info) Description 04/14/2024 1:00 PM CLINCHING MACHINE OPERATOR Office Visit [facility] METAL STAMPING MACHINE OPERATOR Medical [facility] [address] [facility] [address] [place] [address] Nayan José MD [address] [facility] [address] [place] [address] documented as of this encounter Visit Diagnoses Not on filedocumented in this encounter Care Teams Sausage Machine Operator Relationship Specialty Start Date End Date Jhony Vogt DO 68[address] [facility] 162 [facility] [address] [place] [address] PCP - General Internal Medicine 02/21/20 documented as of this encounter
--- OUTSIDE RECORDS SUMMARY | 2024-04-11 12:21 | XMS_ITS | Encounter Summary ---
Author Organization [facility] Address [address] [place] [address] Care Team Providers Care Day Spa Manager Name Role Phone Jhony Vogt Primary Care Provider [phone] Encounter Details Date Type Department Care Team (Late st Contact Info) Description 12/27/2004 Outpatient Historical [facility] Internal Medicine [facility] [address] [facility] [address] [place] [address] Obed Rodriguez MD [address] [place] [address] Social History Tobacco Use Types Packs/Day Years Used Date Smoking Tobacco: Never Assessed Comments Unknown Sex and Gender Information Value Date Recorded Sex Assigned at Not on file Legal Sex Female 2:49 AM GOLF TOURNAMENT CONSULTANT Gender Identity Not on file Sexual Orientation Not on file documented as of this encounter Last Filed Vital Signs Vital Sign Reading Time Taken Comments Blood Pressure 126/92 12/27/2004 10:45 AM CDT Pulse 92 12/27/2004 10:45 AM CDT Temperature 37.6 C (99.6 F) 12/27/2004 10:45 AM CDT Respiratory Rate 12 12/27/2004 10:45 AM CDT Oxygen Saturation - - Inhaled Oxygen Concentration - - Weight 64.4 kg (142 lb) 12/27/2004 10:45 AM CDT Height 167.6 cm (5' 6 ) 12/27/2004 10:45 AM CDT Body Mass Index 22.92 12/27/2004 10:45 AM CDT documented in this encounter Plan of Treatment Upcoming Encounters Date Type Department Care Team (Late st Contact Info) Description 04/14/2024 1:00 PM GOLF TOURNAMENT CONSULTANT Office Visit [facility] RETRIEVAL SPECIALIST Medical [facility] [address] [facility] [address] [place] [address] Nayan José MD [address] [facility] [address] [place] [address] documented as of this encounter Visit Diagnoses Not on filedocumented in this encounter Care Teams Day Spa Manager Relationship Specialty Start Date End Date Jhony Vogt DO 68[address] [facility] 162 [facility] 204 [place] [address] PCP - General Internal Medicine 02/21/20 documented as of this encounter
--- OUTSIDE RECORDS SUMMARY | 2024-04-11 12:21 | XMS_ITS | Encounter Summary ---
Author Organization [facility] Address [address] [place] [address] Care Team Providers Care Broke Handler Name Role Phone Jhony Vogt DO Primary Care Provider [phone] Encounter Details Date Type Department Care Team (Late st Contact Info) Description 02/06/2006 Orders Only [facility] [address] [facility] [place] [address] Obed Rodriguez MD [address] [place] [address] Social History Tobacco Use Types Packs/Day Years Used Date Smoking Tobacco: Never Assessed Comments Unknown Sex and Gender Information Value Date Recorded Sex Assigned at Not on file Legal Sex Female 2:49 AM PUBLIC HEALTH ADMINISTRATOR Gender Identity Not on file Sexual Orientation Not on file documented as of this encounter Progress Notes * Obed Rodriguez MD - 12/15/2007 2:41 AM CDT BLOOD PRESSURE: 140/96 Right Arm Sitting PULSE: 96 Right Radial, Regular RESPIRATIONS: 20 WEIGHT: 166lbs TEMPERATURE: 98.9??f Oral HEIGHT: 66in NURSE NAME: Damián Ramachandran S ALLERGIES: No known drug allergies. MEDICATIONS: Medication list current. CHIEF COMPLAINT f/u htn, depression, and add HISTORY: HISTORY: 272.4-HYPERLIPIDEMIA The patient`s weight is the same. The patient is somewhat compliant with the low saturated fat diet. The patient`s exercise is the same. The patient is tolerating the medications, no complications noted. Labs will be obtained for this patient. 311-DEPRESSION The depression has improved. The patient's symptoms of feeling depressed have improved, denies loss of interest in activities, denies a change in sleep pattern, denies difficulty concentrating, denies feelings of guilt, denies fatigue, denies an appetite change, denies weight change,denies decreased motivation, denies feelings of worthlessness, voices no suicidal ideations, denieschange in libido, denies feeling overwhelmed, anxiety has improved, symptoms of excessive worry have improved, denies muscle tension, denies restlessness, denies recurrent nonsensical thoughts, denies compulsions, deniesdistractibility, does not display flight of ideas, denies being more talkative,denies risky behaviors, does not display grandiosity. No complications noted from the medication presently being used. No recent laboratory work done.the pt notes she is doing better on the wellbutrin but does have some complusions. the pt notes she was not able to tolerate ssri meds. the pt has not seen a psych in some time. 314.00-ADD The symptoms have improved. Some of the symptoms were present after 7 years of age. The symptoms are present in social settings. The patient's ability to not make mistakes has improved, ability to pay attention to details has improved, ability to stay on task has improved, improvement infollow through and finishing of tasks, less forgetful. The prescription medication is well tolerated. Therapies tried include stimulant medication with some benefit. No recent laboratory work done. No recent radiographic work done.the pt notes she is doing better on the strattera. the pt notes thatshe is using the meds daily but still has some forgetfullness. CURRENT PROBLEM LIST: 272.4 HYPERLIPIDEMIA 311 DEPRESSION 314.00 ADD 401.1 HYPERTENSION ESSENTIAL BENIGN 477.9 RHINITIS ALLERGIC UNSPECIFIED 796.2 BLOOD PRESSURE ELEVATED W/O DX OF HTN CURRENT MEDICATION LIST: VALTREX ORAL TABLET 1 GM, 1 Every Day WELLBUTRIN SR ORAL TABLET 12 HR 150 MG, 1 Two Times A Day STRATTERA ORAL CAPSULE CONVENTIONAL 40 MG, 1 Two Times A Day CURRENT ALLERGY LIST: NKDA ROS: GENERAL: Normal activity and energy level, no change in appetite. No major weight gain or loss. No malaise, chills, fever, diaphoresis. ALLERGIC/IMMUNOLOGIC: No hay fever or history of environmental allergies. No chronic problems with immunity. EYES: No vision changes or diplopia. ENT: No hearing loss, epistaxis, hoarseness or dysphagia. No sinus congestion. ENDOCRINE: No heat or cold intolerance, no excessive thirst. CARDIAC: See HISTORY OF PRESENT ILLNESS. RESPIRATORY: No dyspnea, cough, hemoptysis or wheezing. SKIN/BREAST/CHEST: No rashes or non-healing lesions. No breast symptoms noted. HEMATOLOGIC/LYMPHATIC: No anemia, easy bruising, bleeding or swollen nodes. : No frequency, urgency, hematuria or dysuria. GI: No abdominal pain, nausea, vomiting, diarrhea, constipation, melena, or hematochezia. NEUROLOGIC: No weakness, dizziness, loss of consciousness, transient ischemic symptoms, or seizures. MUSCULOSKELETAL: No muscle or joint pain, weakness, swelling or inflammation. No restriction of motion, no atrophy or backache. PSYCHIATRIC: See HISTORY OF PRESENT ILLNESS. PAST MEDICAL HISTORY: MEDICAL: Depression, hypercholesterolemia.add SURGICAL: No previous surgery. ALLERGIES/ADVERSE REACTIONS: No known drug allergies. FAMILY HISTORY: FATHER: The father is living. Illnesses: Heart disease, hypertension, diabetes. MOTHER: The mother is living. Illnesses: Hypertension, cancer of the breast. SOCIAL HISTORY: MARITAL HISTORY: , living with spouse. TOBACCO USE: Has no significant smoking history. ALCOHOL: Drinks a minimal amount of alcohol. PHYSICAL EXAMINATION: CONSTITUTIONAL: GENERAL APPEARANCE: Healthy appearing patient in no distress. EYES: CONJUNCTIVAE/LIDS: Conjunctivae and lids appear normal. PUPILS: Pupils equal and normally reactive to light and accommodation. EARS, NOSE, MOUTH AND THROAT: EXTERNAL/EARS AND NOSE: Overall appearance normal with no scars, lesions or masses. EARS: Tympanic membranes shiny without retraction. Canals unremarkable. Hearing grossly normal. NOSE (AND SINUS): No abnormality of the nose or sinuses is noted. ORAL: Inspection of gums, lips, palate, and teeth normal. No scars, lesions, or masses. Oral mucosaunremarkable with non-inflamed posterior pharynx. NECK/THYROID: Trachea midline. No thyroid enlargement, tenderness, or mass. No supraclavicular or cervical adenopathy. RESPIRATORY: Clear to auscultation and percussion. Normal respiratory effort. CARDIOVASCULAR: CARDIAC: Regular rhythm. No murmurs, rubs, or gallops. ARTERIAL: No aortic bruits. JUGULAR VEINS Jugular veins within normal limits. EDEMA/VARICOSITIES OF EXTREMITIES: No edema or varicosities. LYMPHATICS: No lymphadenopathy in the neck, axillae, or groin. MUSCULOSKELETAL EXAM: EXTREMITIES: PE/MS/BILAT UPPER EXT No misalignment or tenderness. Full range of motion. Normal stability, strength and tone. BILATERAL LOWER EXTREMITIES: No misalignment or tenderness. Full range of motion. Normal stability,strength and tone. NEUROLOGIC: CRANIAL NERVES: fitness floor attendant II-XII grossly intact. PSYCHIATRIC: Judgment appropriate. Oriented. Normal memory. Mood and affect appropriate. ASSESSMENT/PLAN: 272.4-HYPERLIPIDEMIA ASSESSMENT: No medication is currently being used. Will continue to follow for the need to intervene therapeutically. A low cholesterol diet was encouraged. Weight loss was encouraged. Regular aerobic exercise was encouraged. The patient's thyroid status is unknown presently. Will check thyroid studies. Will check laboratory to assess disease effect, to assess medication effect. Clinical guidelines reviewed. Protocol reviewed.the pt is to have her chol checked and will decide on tx based on thelab tests. LAB ORDERS: Order number: [id number] Test Ordered: LIPID PANEL 1078 Order number: [id number] Test Ordered: ALT 1294 Order number: [id number] Test Ordered: TSH 1720 311-DEPRESSION ASSESSMENT: The patient's depression has improved. Will not change medication, continue to monitor for complications. No laboratory work is necessary at this time. Clinical guidelines reviewed. Protocol reviewed.the pts depression is better but the pt has some compulsions. the pt will cont on the wellbutrin for now but will send pt for eval with dr jaye ivory of psych. MEDICATIONS: WELLBUTRIN SR ORAL TABLET 12 HR 150 MG, 1 Two Times A Day, 60 Dispensed, 3 Fills, 30 Duration/Days Supply, status: CONTINUED, 02/06/2006. 314.00-ADD ASSESSMENT: The symptoms have improved. Some of the symptoms were present after 7 years of age. Thesymptoms are present in school. The patient's ability to not make mistakes has improved, ability topay attention to details has improved, ability to stay on task has improved, ability to listen has improved, improvement in follow through and finishing of tasks, improved organization of tasks. The prescription medication is well tolerated. Rating scales were scored and reviewed.the pt is doing well on the straterra and she will cont this med for now and have this refilled. the pt will see dr ivory for this as well. MEDICATIONS: STRATTERA ORAL CAPSULE CONVENTIONAL 40 MG, 1 Two Times A Day, 60 Dispensed, 3 Fills, status: CONTINUED, 02/06/2006. RETURN VISIT : Patient instructed to return in 3 months. Instructed to call if not improving. Instructed to return earlier than the next regularly scheduled appointment if not improving. Electronically Signed by: Obed Rodriguez MD on Monday, February 06, 2006 documented in this encounter Plan of Treatment Upcoming Encounters Date Type Department Care Team (Late st Contact Info) Description 04/14/2024 1:00 PM PUBLIC HEALTH ADMINISTRATOR Office Visit [facility] TIE KNITTER HELPER Medical [facility] [address] [facility] 101 [place] [address] Nayan José MD [facility] [place] [address] [place] [address] documented as of this encounter Visit Diagnoses Not on filedocumented in this encounter Care Teams Broke Handler Relationship Specialty Start Date End Date Jhony Vogt DO 6812 [facility] 162 [facility] 204 [place] [address] PCP - General Internal Medicine 02/21/20 documented as of this encounter
--- OUTSIDE RECORDS SUMMARY | 2024-04-11 12:21 | XMS_ITS | Encounter Summary ---
Author Organization [facility] Address [address] [place] [address] Care Team Providers Care Fur Joiner Name Role Phone Jhony Vogt DO Primary Care Provider [phone] Encounter Details Date Type Department Care Team (Late st Contact Info) Description 01/11/2007 Orders Only [facility] Diabetic [facility] [address] [facility] [place] [address] Obed Rodriguez MD [address] [place] [address] Social History Tobacco Use Types Packs/Day Years Used Date Smoking Tobacco: Never Assessed Comments Unknown Sex and Gender Information Value Date Recorded Sex Assigned at Not on file Legal Sex Female 2:49 AM NEEDLE LOOM OPERATOR Gender Identity Not on file Sexual Orientation Not on file documented as of this encounter Progress Notes * Obed Rodriguez MD - 07/15/2007 5:44 PM CDT TIME:10:12 am PATIENT`S HOME PHONE: PATIENT`S WORK PHONE: PATIENT`S INSURANCE: [facility] WHO TOOK THE CALL: [facility] LAST VISIT: 11-23-06 PCP: radha. WHO CALLED: Pharmacy called. PHARMACY NUMBER: [phone] SECTION 1: REQUESTED ACTION [facility] 01/11/07 at 10:16 am: MEDICATION REQUEST: Patient requests a refill. MEDICATIONS: STRATTERA ORAL CAPSULE CONVENTIONAL 40 MG, 1 Two Times A Day, 60 Dispensed, 2 Fills, status: CONTINUED, 08/24/2006. DOCTOR`S RESPONSE: jennifer 01/11/07 at 10:17 am Please schedule an appointment with me in the next 4 weeks. Refill now with 2 additional refills. FINAL ACTION: [facility] 01/11/07 at 12:01 pm Called pharmacy at 01/11/07 at 12:01 pm. Electronically Signed by: Princess Solorio on Thursday, January 11, 2007 documented in this encounter Plan of Treatment Upcoming Encounters Date Type Department Care Team (Late st Contact Info) Description 04/14/2024 1:00 PM NEEDLE LOOM OPERATOR Office Visit [facility] SOURCING ANALYST [facility] [place] [address] [facility] [address] [place] [address] Nayan José MD [address] [place] [address] documented as of this encounter Visit Diagnoses Not on filedocumented in this encounter Care Teams Fur Joiner Relationship Specialty Start Date End Date Jhony Vogt DO 6812 [facility] 162 [facility] [address] [place] [address] PCP - General Internal Medicine 02/21/20 documented as of this encounter
--- OUTSIDE RECORDS SUMMARY | 2024-04-11 12:21 | XMS_ITS | Encounter Summary ---
Author Organization [facility] Address [address] [place] [address] Care Team Providers Care Hospital Chief Executive Officer Name Role Phone Jhony Vogt Primary Care Provider [phone] Encounter Details Date Type Department Care Team (Late st Contact Info) Description 11/23/2006 Outpatient Historical [facility] Internal Medicine [facility] [address] [facility] [address] [place] [address] Obed Rodriguez MD [address] [place] [address] Social History Tobacco Use Types Packs/Day Years Used Date Smoking Tobacco: Never Assessed Comments Unknown Sex and Gender Information Value Date Recorded Sex Assigned at Not on file Legal Sex Female 2:49 AM SENIOR SALES OPERATIONS ANALYST Gender Identity Not on file Sexual Orientation Not on file documented as of this encounter Last Filed Vital Signs Vital Sign Reading Time Taken Comments Blood Pressure 110/72 11/23/2006 10:00 AM CDT Pulse 104 11/23/2006 10:00 AM CDT Temperature 37.3 C (99.1 F) 11/23/2006 10:00 AM CDT Respiratory Rate 20 11/23/2006 10:00 AM CDT Oxygen Saturation - - Inhaled Oxygen Concentration - - Weight 65.3 kg (144 lb) 11/23/2006 10:00 AM CDT Height 167.6 cm (5' 6 ) 11/23/2006 10:00 AM CDT Body Mass Index 23.24 11/23/2006 10:00 AM CDT documented in this encounter Plan of Treatment Upcoming Encounters Date Type Department Care Team (Late st Contact Info) Description 04/14/2024 1:00 PM SENIOR SALES OPERATIONS ANALYST Office Visit [facility] BRAND INSPECTOR Medical [facility] [address] [facility] [address] [place] [address] Nayan José MD [address] [facility] [address] [place] [address] documented as of this encounter Visit Diagnoses Not on filedocumented in this encounter Care Teams Hospital Chief Executive Officer Relationship Specialty Start Date End Date Jhony Vogt DO 6812 [facility] [address] [facility] 204 [place] [address] PCP - General Internal Medicine 02/21/20 documented as of this encounter
--- OUTSIDE RECORDS SUMMARY | 2024-04-11 12:21 | XMS_ITS | Encounter Summary ---
Author Organization [facility] Address [address] [place] [address] Care Team Providers Care Access Services Representative Name Role Phone Jhony Vogt DO Primary Care Provider [phone] Encounter Details Date Type Department Care Team (Late st Contact Info) Description 08/24/2006 Orders Only [facility] Diabetic [facility] Center [address] [facility] [place] [address] Obed Rodriguez MD [address] [place] [address] Social History Tobacco Use Types Packs/Day Years Used Date Smoking Tobacco: Never Assessed Comments Unknown Sex and Gender Information Value Date Recorded Sex Assigned at Not on file Legal Sex Female 2:49 AM WOOD HACKER Gender Identity Not on file Sexual Orientation Not on file documented as of this encounter Progress Notes * Obed Rodriguez MD - 07/21/2007 5:21 PM CDT TIME:09:11 am PATIENT`S HOME PHONE: PATIENT`S WORK PHONE: PATIENT`S INSURANCE: [employer] [facility] WHO TOOK THE CALL: Damián Ramachandran S GENERAL INFORMATION LAST VISIT: PCP: radha. WHO CALLED: Pharmacy called. CURRENT ALLERGY LIST: [facility] PHARMACY NUMBER: [phone] SECTION 1: REQUESTED ACTION sarah 08/24/06 at 09:13 am: MEDICATION REQUEST: Patient requests a refill. MEDICATIONS: STRATTERA ORAL CAPSULE CONVENTIONAL 40 MG, 1 Two Times A Day, 60 Dispensed, 3 Fills, status: CONTINUED, 02/06/2006. WELLBUTRIN SR ORAL TABLET 12 HR 150 MG, 1 Two Times A Day, 60 Dispensed, 3 Fills, 30 Duration/Days Supply, status: CONTINUED, 02/06/2006. DOCTOR`S RESPONSE: jennifer 08/24/06 at 09:21 am Refill now with 2 additional refills. FINAL ACTION: [facility] 08/24/06 at 09:43 am Called pharmacy at 08/24/06 at 09:43 am. refilled x's 2 Electronically Signed by: Princess Solorio on Thursday, August 24, 2006 documented in this encounter Plan of Treatment Upcoming Encounters Date Type Department Care Team (Late st Contact Info) Description 04/14/2024 1:00 PM WOOD HACKER Office Visit [facility] MORTGAGE COUNSELOR Medical [place] [address] [place] [address] Nayan José MD [facility] [place] [address] documented as of this encounter Visit Diagnoses Not on filedocumented in this encounter Care Teams Access Services Representative Relationship Specialty Start Date End Date Jhony Vogt DO 6812 [facility] 162 [facility] 204 [place] [address] PCP - General Internal Medicine 02/21/20 documented as of this encounter
--- OUTSIDE RECORDS SUMMARY | 2024-04-11 12:21 | XMS_ITS | Encounter Summary ---
Author Organization [employer] Address [address] [place] [address] Care Team Providers Care Client Services Administrator Name Role Phone Jhony Vogt DO Primary Care Provider [phone] Encounter Details Date Type Department Care Team (Late st Contact Info) Description 08/04/2006 Orders Only [facility] Diabetic [facility] [address] [facility] [place] [address] Obed Rodriguez MD [address] [place] [address] Social History Tobacco Use Types Packs/Day Years Used Date Smoking Tobacco: Never Assessed Comments Unknown Sex and Gender Information Value Date Recorded Sex Assigned at Not on file Legal Sex Female 2:49 AM ELECTRICAL ENGINEERING INTERN Gender Identity Not on file Sexual Orientation Not on file documented as of this encounter Progress Notes * Obed Rodriguez MD - 07/21/2007 1:54 PM CDT WEIGHT: 143lbs BLOOD PRESSURE: 130/96 Right Arm Sitting TEMPERATURE: 99.1??f Oral PULSE: 80 Right Radial, Regular RESPIRATIONS: 20 HEIGHT: 66in NURSE NAME: Princess Osmin ALLERGIES: No known drug allergies. MEDICATIONS: Medication list current. CHIEF COMPLAINT poss med change for depression HISTORY: HISTORY: 272.4-HYPERLIPIDEMIA The patient`s weight is the same. The patient is somewhat compliant with the low saturated fat diet. The patient`s exercise is the same. Currently the patient is off all medication. Labs will be obtained for this patient.the pt has hx of elevated chol. the pt has not been on any meds for this. the pt has lost wt and is dieting. 311-DEPRESSION The depression has worsened. The patient's symptoms of irritability have worsened, denies loss of interest in activities, denies a change in sleep pattern, denies difficulty concentrating, denies feelings of guilt, denies fatigue, denies an appetite change, denies weight change, denies feelings of worthlessness, voices no suicidal ideations, denies change in libido, denies feeling overwhelmed, denies feeling anxious, symptoms of excessive worry have worsened, denies muscle tension, denies restlessness, denies recurrent nonsensical thoughts, denies compulsions, deniesdistractibil ity, does not display flight of ideas, denies being more talkative, denies risky behaviors, does not display grandiosity. No complications noted from the medication presently being used. No recent laboratory work done.the pt notes more anxiety and irritability.the pt notes that she is doing on the w ellbutrin.the pt notes she did well on lexapro in the past. 314.00-ADD The symptoms have improved. Some of the symptoms were present after 7 years of age. The symptoms are present in social settings, the symptoms are present at home. The patient's ability to not make mistakes has improved, ability to pay attention to details has improved, ability to stay ontask has improved, improvement in follow through and finishing of tasks, improved organization of tasks, less forgetful. The prescription medication is well tolerated. Therapies tried include stimulant medication with some benefit.the pt notes she has done well on the strattera. the pt notes she does see a psych for this but has not in some time. 401.1-HYPERTENSION ESSENTIAL BENIGN The patient`s weight is the same. The patient is somewhat compliant with diet. The patient`s exercise is the same. The patient is not checking out of office blood pressures. The patient denies chest pain, shortness of breath, dyspnea on exertion, pedal edema, or headache. Currently the patient is off all medication. Labs will be obtained for this patient. The blood pressure has not been taken outside the office since the last visit.the pt has hx htn. the pt notes she has not taken any meds for this. the pt has not been willing to do so in the past. CURRENT PROBLEM LIST: 272.4 HYPERLIPIDEMIA 311 DEPRESSION [...] or cold intolerance, no excessive thirst. CARDIAC: No chest pain, palpitations, orthopnea, dyspnea on exertion, or paroxysmal nocturnal dyspnea. RESPIRATORY: No dyspnea, cough, hemoptysis or wheezing. [...] the neck, axillae, or groin. MUSCULOSKELETAL EXAM: SPINE/RIBS/PELVIS: No kyphosis, lordosis, full range of motion. Normal stability, strength and tone. EXTREMITIES: PE/MS/BILAT UPPER EXT No misalignment or tenderness. Full range of motion. Normal stability, strength and tone. BILATERAL LOWER EXTREMITIES: No misalignment or tenderness. Full range of motion. Normal stability,strength and tone. NEUROLOGIC: CRANIAL NERVES: traffic observer II-XII grossly intact. No tremor or cerebellar signs noted. ASSESSMENT/PLAN: 272.4-HYPERLIPIDEMIA ASSESSMENT: No medication is currently being used. Will continue to follow for the need to intervene therapeutically. A low cholesterol diet was encouraged. Regular aerobic exercise was encouraged. The patient's thyroid status is unknown presently. Will check thyroid studies. Will check laboratory to assess disease effect, to assess medication effect. Clinical guidelines reviewed. Protocol reviewed.the pt will have a chol level done and will decide on tx based on the lab tests 311-DEPRESSION ASSESSMENT: The patient's depression is worsening. Will add medication to current regimen for better control. No laboratory work is necessary at this time. Clinical guidelines reviewed. Protocol reviewed.the pt will cont on the wellbutrin and will add lexapro 5 mg a day and samples will be given tothe pt to try at home. MEDICATIONS: LEXAPRO ORAL TABLET 5 MG, 1 Every Day, 30 Dispensed, status: NEW PRESCRIPTION, 08/04/2006. 314.00-ADD ASSESSMENT: The symptoms have improved. Some [...] of tasks. The prescription medication is well tolerated.the pt will cont on the strattera and the pt will see psych in follow up. 401.1-HYPERTENSION ESSENTIAL BENIGN ASSESSMENT: The blood pressure is unchanged. Will start medication for better control. The patient was encouraged to follow a low salt diet. Regular aerobic exercise was encouraged. Will check laboratory to assess disease effect, to assess medication effect. Clinical guidelines reviewed. Protocol reviewed. The patient was instructed to obtain outside BP readings for the next appointment.the pt will be started on norvasc and the pt will check her bps at home. the pt will call with any side effects on this med. MEDICATIONS: NORVASC ORAL TABLET 2.5 MG, 1 Every Day, 30 Dispensed, 2 Fills, status: NEW PRESCRIPTION, 08/04/2006. LAB ORDERS: Order number: [id number] Test Ordered: COMPREHENSIVE METABOLIC PANEL & GFR 1112 Order number: [id number] Test Ordered: LIPID PANEL 1078 Order number: [id number] Test Ordered: TSH 1720 RETURN VISIT : Patient instructed to return in 1 month. The patient will be contacted to return after we review the labs ordered above. Instructed to call if not improving. Instructed to return earlier than the next regularly scheduled appointment if not improving. Electronically Signed by: Obed Rodriguez MD on Friday, August 04, 2006 documented in this encounter Plan of Treatment Upcoming Encounters Date Type Department Care Team (Late st Contact Info) Description 04/14/2024 1:00 PM ELECTRICAL ENGINEERING INTERN Office Visit [facility] CLEARING TUB WORKER Medical [facility] [address] [facility] [address] [place] [address] Nayan José MD [facility] [address] [place] [address] documented as of this encounter Visit Diagnoses Not on filedocumented in this encounter Care Teams Client Services Administrator Relationship Specialty Start Date End Date Jhony Vogt DO [address] [place] [address] PCP - General Internal Medicine 02/21/20 documented as of this encounter
--- OUTSIDE RECORDS SUMMARY | 2024-04-11 12:21 | XMS_ITS | Encounter Summary ---
Author Organization [employer] Address [address] [place] [address] Care Team Providers Care Washerette Machine Operator Name Role Phone Jhony Vogt DO Primary Care Provider [phone] Encounter Details Date Type Department Care Team (Late st Contact Info) Description 08/07/2005 Orders Only [facility] Diabetic [facility]inal Scanning Center [address] [facility] [place] [address] Obed Rodriguez MD [address] [place] [address] Social History Tobacco Use Types Packs/Day Years Used Date Smoking Tobacco: Never Assessed Comments Unknown Sex and Gender Information Value Date Recorded Sex Assigned at Not on file Legal Sex Female 2:49 AM CARBURETOR SPECIALIST Gender Identity Not on file Sexual Orientation Not on file documented as of this encounter Progress Notes * Obed Rodriguez MD - 12/10/2007 7:16 AM CDT BLOOD PRESSURE: 128/100 Right Arm Sitting PULSE: 80 Right Radial, Regular RESPIRATIONS: 20 WEIGHT: 168lbs TEMPERATURE: 98.5??f Oral HEIGHT: 5ft6in NURSE NAME: Damián Ramachandran S ALLERGIES: No known drug allergies. MEDICATIONS: Medication list current. CHIEF COMPLAINT f/u depression, add, and med refill HISTORY: HISTORY: 311-DEPRESSION The depression has improved. The patient's symptoms of feeling depressed have improved, symptoms of irritability have improved, decreased interest in activities has improved, denies difficulty concentrating, denies feelings of guilt, denies fatigue, denies an appetite change, denies weight change, decreased motivation has improved, denies feelings of worthlessness, voices no suicidal ideations, denies change in libido, denies feeling anxious, denies excessive worry, denies muscletension, denies restlessness, denies recurrent nonsensical thoughts, denies compulsions, deniesdistractibility, does not display flight of ideas, denies being more talkative, denies risky behaviors, does not display grandiosity. No complications noted from the medication presently being used. No recent laboratory work done.the pt notes that overall she is doing well with her depression on the wellbutrin sr. the pt notes she has few episodes of low mood on this med. 314.00-ADD The symptoms have improved. Some of the symptoms were present after 7 years of age. The symptoms are present at home. The patient's ability to not make mistakes has improved, ability to pay attention to details has improved, no longer losing things. The prescription medication is well tolerated. Therapies tried include positive reinforcement with some benefit, therapy with some benefit. No recent laboratory work done. No recent radiographic work done. The patient is being seen by a psychiatrist.the pt notes that overall her add is better on the strattera. the pt notes that she is taking this med and notes that when she is not on this med she is having problems with attention. 272.4-HYPERLIPIDEMIA The patient`s weight is the same. The patient is somewhat compliant with the low saturated fat diet. The patient`s exercise is the same. Currently the patient is off all medication. Labs will be obtained for this patient. 796.2-BLOOD PRESSURE ELEVATED W/O DX OF HTN The patient has gained weight. The patient is somewhat compliant with diet. The patient`s exercise is the same. The patient is not checking out of office blood pressures. The patient denies chest pain, shortness of breath, dyspnea on exertion, pedal edema, or headache. No complications noted from the medication presently being used. Labs will be obtained for this patient. The blood pressure readings taken outside the office since the last visit have been in the target range.the pt has not hx of htn but notes that she has put on wt recently. the pt notes no symptoms associated with htn. CURRENT PROBLEM LIST: 272.4 HYPERLIPIDEMIA 311 DEPRESSION 314.00 ADD 477.9 RHINITIS ALLERGIC UNSPECIFIED 796.2 BLOOD PRESSURE [...] rhythm. No murmurs, rubs, or gallops. ARTERIAL: Aortic pulses of normal amplitude with no bruits. JUGULAR VEINS Jugular veins within normal limits. EDEMA/VARICOSITIES OF EXTREMITIES: No edema or varicosities. LYMPHATICS: No lymphadenopathy in the neck, axillae, or groin. GASTROINTESTINAL: ABDOMEN: Soft, non-tender, without masses. Bowel sounds active. LIVER/SPLEEN/KIDNEY: No hepatosplenomegaly, tenderness or nodularity. Kidneys not palpable. MUSCULOSKELETAL EXAM: EXTREMITIES: PE/MS/BILAT UPPER EXT No misalignment or tenderness. Full range of motion. Normal stability, strength and tone. BILATERAL LOWER EXTREMITIES: No misalignment or tenderness. Full range of motion. Normal stability,strength and tone. SKIN: SKIN: Warm, dry, no diaphoresis, no significant lesions, irritation, rashes or ulcers. No induration, obvious subcutaneous nodules or tightening. NEUROLOGIC: CRANIAL NERVES: technical editor II-XII grossly intact. PSYCHIATRIC: Judgment appropriate. Oriented. Normal memory. Mood and affect appropriate. ASSESSMENT/PLAN: 311-DEPRESSION ASSESSMENT: The patient's depression has improved. Will not change medication, continue to monitor for complications. No laboratory work is necessary at this time. Clinical guidelines reviewed. Protocol reviewed.the pt will cont on the wellbutrin sr for now. MEDICATIONS: WELLBUTRIN SR ORAL TABLET 12 HR 150 MG, 1 Two Times A Day, 60 Dispensed, 5 Fills, 30 Duration/Days Supply, status: CONTINUED, 08/07/2005. 314.00-ADD ASSESSMENT: The symptoms have improved. Some [...] The prescription medication is well tolerated.the pt is doing well on the straterra and she will cont this med for now and have this refilled. MEDICATIONS: STRATTERA ORAL CAPSULE CONVENTIONAL 40 MG, 1 Two Times A Day, 60 Dispensed, 5 Fills, status: CONTINUED, 08/07/2005. 272.4-HYPERLIPIDEMIA ASSESSMENT: No medication is currently being used. Will continue to follow for the need to intervene therapeutically. A low cholesterol diet was encouraged. Weight loss was encouraged. Regular aerobic exercise was encouraged. The patient's thyroid status is being followed, and is known to be normalpresently. Will check laboratory to assess disease effect, to assess medication effect. Clinical guidelines reviewed. Protocol reviewed.the pt will have her chol checked and will decide on tx based on the lab tests. LAB ORDERS: Order number: [id number] Test Ordered: LIPID PANEL 1078 Order number: [id number] Test Ordered: ALT 1294 Order number: [id number] Test Ordered: BASIC METABOLIC PANEL 1607 796.2-BLOOD PRESSURE ELEVATED W/O DX OF HTN ASSESSMENT: The blood pressure has worsened. No medication currently used for blood pressure control. Will continue to follow for the need to intervene therapeutically. Will check laboratory to assess disease effect. Clinical guidelines reviewed. Protocol reviewed. The patient was instructed to obtain outside BP readings and call the office in two weeks.the pt will check her bps at home and call us with these in two wks. the pt will be started on tx if the bps are elevated. RETURN VISIT : Patient instructed to return in 4 months. Electronically Signed by: Obed Rodriguez MD on July documented in this encounter Plan of Treatment Upcoming Encounters Date Type Department Care Team (Late st Contact Info) Description 04/14/2024 1:00 PM CARBURETOR SPECIALIST Office Visit [facility] PHARMACY INTAKE COORDINATOR [facility] [address] [facility] [address] [place] [address] Nayan José MD [facility] [address] [facility] [address] [place] [address] documented as of this encounter Visit Diagnoses Not on filedocumented in this encounter Care Teams Washerette Machine Operator Relationship Specialty Start Date End Date Jhony Vogt DO [address] [facility] [address] [place] [address] PCP - General Internal Medicine 02/21/20 documented as of this encounter
--- OUTSIDE RECORDS SUMMARY | 2024-04-11 12:21 | XMS_ITS | Encounter Summary ---
Author Organization [facility] Address [address] [place] [address] Care Team Providers Care Carton Inspector Name Role Phone Jhony Vogt Primary Care Provider [phone] Encounter Details Date Type Department Care Team (Late st Contact Info) Description 02/06/2006 Outpatient Historical [facility]3] Internal Medicine [facility] [address] [facility] [address] [place] [address] Obed Rodriguez MD [address] [place] [address] Social History Tobacco Use Types Packs/Day Years Used Date Smoking Tobacco: Never Assessed Comments Unknown Sex and Gender Information Value Date Recorded Sex Assigned at Not on file Legal Sex Female 2:49 AM CONTINUOUS PROCESS ROTARY DRUM TANNER Gender Identity Not on file Sexual Orientation Not on file documented as of this encounter Last Filed Vital Signs Vital Sign Reading Time Taken Comments Blood Pressure 140/96 02/06/2006 10:45 AM CONTINUOUS PROCESS ROTARY DRUM TANNER Pulse 96 02/06/2006 10:45 AM CONTINUOUS PROCESS ROTARY DRUM TANNER Temperature 37.2 C (98.9 F) 02/06/2006 10:45 AM CONTINUOUS PROCESS ROTARY DRUM TANNER Respiratory Rate 20 02/06/2006 10:45 AM CONTINUOUS PROCESS ROTARY DRUM TANNER Oxygen Saturation - - Inhaled Oxygen Concentration - - Weight 75.3 kg (166 lb) 02/06/2006 10:45 AM CONTINUOUS PROCESS ROTARY DRUM TANNER Height 167.6 cm (5' 6 ) 02/06/2006 10:45 AM CONTINUOUS PROCESS ROTARY DRUM TANNER Body Mass Index 26.79 02/06/2006 10:45 AM CONTINUOUS PROCESS ROTARY DRUM TANNER documented in this encounter Plan of Treatment Upcoming Encounters Date Type Department Care Team (Late st Contact Info) Description 04/14/2024 1:00 PM CONTINUOUS PROCESS ROTARY DRUM TANNER Office Visit [facility]3] WORKFORCE MANAGEMENT COORDINATOR Medical [facility] [address] [facility] [address] [place] [address] Nayan José MD [address] [facility][Note 3] [address] [place] [address] documented as of this encounter Visit Diagnoses Not on filedocumented in this encounter Care Teams Carton Inspector Relationship Specialty Start Date End Date Jhony Vogt DO [address] [facility] [address] [place] [address] PCP - General Internal Medicine 02/21/20 documented as of this encounter
--- OUTSIDE RECORDS SUMMARY | 2024-04-11 12:21 | XMS_ITS | Encounter Summary ---
Author Organization [facility] Address [address] [place] [address] Care Team Providers Care Toolman Name Role Phone Jhony Vogt DO Primary Care Provider [phone] Encounter Details Date Type Department Care Team ([facility] Contact Info) Description 05/26/2003 Outpatient Historical [facility] Internal Medicine [facility] [address] [facility] [address] [address] Obed Rodriguez MD [facility] [place] [address] Social History Tobacco Use Types Packs/Day Years Used Date Smoking Tobacco: Never Assessed Comments Unknown Sex and Gender Information Value Date Recorded Sex Assigned at Not on file Legal Sex Female 2:49 AM PAN OPERATOR Gender Identity Not on file Sexual Orientation Not on file documented as of this encounter Plan of Treatment Upcoming Encounters Date Type Department Care Team ([facility] Contact Info) Description 04/14/2024 1:00 PM PAN OPERATOR Office Visit [facility] DRESS DESIGNER [facility] [address] [facility] [address] [place] [address] Naayn José MD [address] [facility] [address] [place] [address] documented as of this encounter Visit Diagnoses Not on filedocumented in this encounter Care Teams Toolman Relationship Specialty Start Date End Date Jhony Vogt DO [address] [facility] [address] [facility] [address] [place] [address] PCP - General Internal Medicine 02/21/20 documented as of this encounter
--- OUTSIDE RECORDS SUMMARY | 2024-04-11 12:21 | XMS_ITS | Encounter Summary ---
Author Organization [facility] Address [address] [place] [address] Care Team Providers Care Photography Colorist Name Role Phone Jhony Vogt Primary Care Provider [phone] Encounter Details Date Type Department Care Team (Late st Contact Info) Description 08/04/2006 Outpatient Historical [facility] Internal Medicine [facility] [address] [facility] [address] [place] [address] Obed Rodriguez MD [address] [place] [address] Social History Tobacco Use Types Packs/Day Years Used Date Smoking Tobacco: Never Assessed Comments Unknown Sex and Gender Information Value Date Recorded Sex Assigned at Not on file Legal Sex Female 2:49 AM DESIGN EDITOR Gender Identity Not on file Sexual Orientation Not on file documented as of this encounter Last Filed Vital Signs Vital Sign Reading Time Taken Comments Blood Pressure 130/96 08/04/2006 10:45 AM CDT Pulse 80 08/04/2006 10:45 AM CDT Temperature 37.3 C (99.1 F) 08/04/2006 10:45 AM CDT Respiratory Rate 20 08/04/2006 10:45 AM CDT Oxygen Saturation - - Inhaled Oxygen Concentration - - Weight 64.9 kg (143 lb) 08/04/2006 10:45 AM CDT Height 167.6 cm (5' 6 ) 08/04/2006 10:45 AM CDT Body Mass Index 23.08 08/04/2006 10:45 AM CDT documented in this encounter Plan of Treatment Upcoming Encounters Date Type Department Care Team (Late st Contact Info) Description 04/14/2024 1:00 PM DESIGN EDITOR Office Visit [facility] BUILDINGS PAINTER Medical [facility] [address] [facility] [address] [place] [address] Nayan José MD [address] [facility] [address] [place] [address] documented as of this encounter Visit Diagnoses Not on filedocumented in this encounter Care Teams Photography Colorist Relationship Specialty Start Date End Date Jhony Vogt DO [address] [facility] [address] [facility] [address] [place] [address] PCP - General Internal Medicine 02/21/20 documented as of this encounter
== END 2024-04-11 11:37 | disposition home or self-care (01) ==
LOC: ANHBWCLAB 11:37
PROVIDERS: PCP Nurse Practitioner Adult Health; Visit Provider Nurse Practitioner Adult Health
DX: E03.9 Hypothyroidism, unspecified (principal)
CPT/HCPCS: 36415; 84443